=== PATIENT | female | born 1945 | race Caucasian/White ===

== ENCOUNTER 2017-03-11 07:43 | Day surgery (SDC) | payer MEDICARE ==
[2017-03-09 15:49] VITALS: BMI 34.7
[~2017-03-11 07:43] MED LIST: LACTATED RINGERS 1,000 ML IV SCH
[2017-03-11 08:18] VITALS: PULSE 60; RESP 18; TEMP 97.6
[2017-03-11] MEDS ORDERED: PROPOFOL 10 MG/ML 20 ML VIAL IV ONE (08:29)
[2017-03-11 08:42] LABS: Glucose,Whole Blood 105 mg/dL (75-99)
--- NOTE | 2017-03-11 08:47 | P.PCN ---
Date of Procedure: 03/11/17 Procedure(s) Performed: BRIEF HISTORY: Patient is a 71-year-old pleasant female, scheduled for an elective colonoscopy as a part of screening for colorectal neoplasia. She has a family history of colon cancer diagnosed in her brother and sister in detail early 60s. PROCEDURE PERFORMED: Colonoscopy with biopsy. PREOPERATIVE DIAGNOSIS: Screening for colon cancer/family history of colon cancer. IV sedation per Anesthesia. PROCEDURE: After informed consent was obtained, the patient, was brought into the endoscopy unit. IV sedation was administered by Anesthesia under continuous monitoring. Digital rectal examination was normal. Initially the Olympus CF- 160 flexible video colonoscope was then inserted in the rectum, gradually advanced into the cecum without any difficulty. Careful examination was performed as the scope was gradually being withdrawn. Ileocecal valve and the appendiceal orifice were visualized and appeared normal. Prep was excellent. Mucosa of the cecum, ascending colon, transverse colon, appeared normal. In the descending colon there was a 5 mm polyp that was removed by biopsy. Rest of the descending colon, sigmoid colon, and rectum appeared normal. Retroflexion was performed in the rectum and no lesions were seen. The patient tolerated the procedure well. IMPRESSION: 5 mm descending colon polyp status post removal by biopsy. Rest of the colon appeared normal.. RECOMMENDATIONS: Findings of this examination were discussed with the patient as well as her family. She was advised to follow with the biopsy results and have a repeat surveillance colonoscopy in 5 years because of the strong family history of colon cancer.
[2017-03-11 09:12] VITALS: BP 127/60
== END 2017-03-11 09:44 | disposition home or self-care (01) ==
LOC: ORWHC2ENDO 07:43
PROVIDERS: ATTEND Internal Medicine Gastroenterology
DX: Z12.11 Encounter for screening for malignant neoplasm of colon (principal); D12.4 Benign neoplasm of descending colon; E78.5 Hyperlipidemia, unspecified; E11.9 Type 2 diabetes mellitus without complications; E07.9 Disorder of thyroid, unspecified; Z80.0 Family history of malignant neoplasm of digestive organs; Z88.1 Allergy status to other antibiotic agents; Z79.01 Long term (current) use of anticoagulants; Z79.4 Long term (current) use of insulin; Z79.899 Other long term (current) drug therapy; Z86.79 Personal history of other diseases of the circulatory system
CPT/HCPCS: 45380; 88305; J2704

== ENCOUNTER 2017-05-08 11:36 | Emergency (ER) | payer MEDICARE ==
[2017-05-08] MEDS ORDERED: SODIUM CHLORIDE 0.9% 500 ML IV STA ×2 (11:49→13:21)
--- NOTE | 2017-05-08 12:00 | ED ---
General Adult HPI - General Chief complaint: Dizziness Stated complaint: kidney stones Time Seen by Provider: 05/08/17 11:41 Source: EMS, RN notes reviewed Mode of arrival: EMS Limitations: no limitations - History of Present Illness Initial comments: 71-year-old female presents to the emergency department with a chief complaint of dizziness. Patient has been having some left-sided kidney pain and dysuria and frequency. She went to urgent care and it appear that she had a UTI they gave her a shot of Rocephin and after she immediately became dizzy and feeling off. She states that she doesn't believe she ever had a shot like that in the past. She states that she is starting to feel better at this time. They deny any rashes she denies any difficulty in breathing. She denies any high fevers at home. There's been no nausea or vomiting. She was sent here due to her reaction to the injection so they thought that she should be further evaluated. Patient denies any recent fever, chills, shortness of breath, chest pain, abdominal pain, nausea vomiting, numbness or tingling, constipation or diarrhea , headaches or visual changes, or any other current symptoms. - Related Data Home Medications Medication Instructions Recorded Confirmed Atenolol 100 mg PO DAILY 03/09/17 05/08/17 Dabigatran [Pradaxa] 150 mg PO BID 03/09/17 05/08/17 FLUoxetine HCL 40 mg PO DAILY 03/09/17 05/08/17 Insulin Aspart [NovoLOG] See Protocol SQ AC-TID 03/09/17 05/08/17 Insulin Glargine [Lantus] 30 unit SQ HS 03/09/17 05/08/17 Levothyroxine Sodium [Synthroid] 75 mcg PO DAILY 03/09/17 05/08/17 Pravastatin Sodium [Pravachol] 40 mg PO DAILY 03/09/17 05/08/17 Ramipril 2.5 mg PO DAILY 03/09/17 05/08/17 Ibandronate Sodium [Boniva] 150 mg PO Q30D 05/08/17 05/08/17 Previous Rx's Medication Instructions Recorded ALPRAZolam [Xanax] 0.5 mg PO BID PRN #20 tablet 11/08/14 Hydrocodone/Acetaminophen [[place] 1 each PO Q6HR PRN #20 tab 05/08/17 5-325] Ondansetron Odt [Zofran ODT] 4 mg PO Q8HR PRN #20 tab 05/08/17 Tamsulosin [Flomax] 0.4 mg PO DAILY #5 cap 05/08/17 Allergies Allergy/AdvReac Type Severity Reaction Status Date / Time ofloxacin [From Floxin] Allergy Unknown Verified 05/08/17 12:49 Review of Systems ROS Statement: Those systems with pertinent positive or pertinent negative responses have been documented in the HPI. ROS Other: All systems not noted in ROS Statement are negative. Past Medical History Past Medical History: Atrial Fibrillation, Diabetes Mellitus, Hyperlipidemia, Hypertension History of Any Multi-Drug Resistant Organisms: None Reported Past Surgical History: Appendectomy, Cardiac Ablation, Cholecystectomy, Hysterectomy, Joint Replacement, Orthopedic Surgery, Pacemaker Additional Past Surgical History / Comment(s): lt knee replacement Past Anesthesia/Blood Transfusion Reactions: Family History of Problems w/ Anesthesia, Motion Sickness Additional Past Anesthesia/Blood Transfusion Reaction / Comment(s): pt states siblings are "allergic" to anesthesia experience hives and breathing difficulties Type of Cardiac Device: Permanent Pacemaker Device Placement Date:: 2013 Past Psychological History: Depression Smoking Status: Never smoker - Past Family History Brother(s) Family Medical History: Cancer Additional Family Medical History / Comment(s): colorectal,multiple myeloma Sister(s) Family Medical History: Cancer, CVA/TIA Additional Family Medical History / Comment(s): breast,colorectal cancer Son(s) Family Medical History: Cancer Additional Family Medical History / Comment(s): leukemia General Exam - General Exam Comments Initial Comments: General: The patient is awake and alert, in no distress, and does not appear acutely ill. Eye: Pupils are equal, round and reactive to light, extra-ocular movements are intact; there is normal conjunctiva bilaterally. No signs of icterus. Ears, nose, mouth and throat: There are moist mucous membranes. Neck: The neck is supple, there is no tenderness. Cardiovascular: There is a regular rate and rhythm. No murmur, rub or gallop is appreciated. Respiratory: Lungs are clear to auscultation, respirations are non-labored, breath sounds are equal. No wheezes, stridor, rales, or rhonchi. Gastrointestinal: Soft, non-distended, non-tender abdomen without masses or organomegaly noted. There is no rebound or guarding present. No CVA tenderness. Bowel sounds are unremarkable. Back: There is no tenderness to palpation in the midline. There is no obvious deformity. No rashes noted. Musculoskeletal: Normal ROM, no tenderness, There is no pedal edema. There is no calf tenderness or swelling. Sensation intact. Pulses equal bilaterally 2+. Neurological: CN II-XII intact, There are no obvious motor or sensory deficits. Coordination appears grossly intact. Speech is normal. Skin: Skin is warm and dry and no rashes or lesions are noted. Psychiatric: Cooperative, appropriate mood & affect, normal judgment. Limitations: no limitations Course Vital Signs 05/08/17 05/08/17 11:50 14:46 Temperature 97.4 F L Pulse Rate 81 80 Respiratory 18 16 Rate Blood Pressure 167/71 109/58 O2 Sat by Pulse 100 95 Oximetry Medical Decision Making - Medical Decision Making 71-year-old female presents to the emergency department with a chief complaint of reaction to injection. At this time patient lab work and CT has been reviewed. At this time there does appear to be some dehydration with an elevated lactic acid. Patient was hydrated and pain went from a 7 to a 4 with tylenol. SHe states she has had improvement. on further taking she states she did have a pink urine and now it seems to have changed to clear on cathing. URine shows no sign of infection culture was sent. We discussed high suspicion for possible ureteral stone. We did discuss care and home and follow up. We discussed return parameters and all the patients questions. THey are in agreement with this plan and comfortable taking the patient home. All questions have been answered. Patient will be discharged. - Lab Data Result diagrams: 05/08/17 12:12 05/08/17 12:12 Lab Results 05/08/17 05/08/17 05/08/17 Range/Units 12:12 12:12 12:12 WBC 8.7 (3.8-10.6) k/uL RBC 4.31 (3.80-5.40) m/uL Hgb 13.5 (11.4-16.0) gm/dL Hct 42.4 (34.0-46.0) % MCV 98.4 (80.0-100.0) fL MCH 31.4 (25.0-35.0) pg MCHC 31.9 (31.0-37.0) g/dL RDW 14.2 (11.5-15.5) % Plt Count 164 (150-450) k/uL Neutrophils % 77 % Lymphocytes % 17 % Monocytes % 4 % Eosinophils % 1 % Basophils % 1 % Neutrophils # 6.7 (1.3-7.7) k/uL Lymphocytes # 1.4 (1.0-4.8) k/uL Monocytes # 0.4 (0-1.0) k/uL Eosinophils # 0.1 (0-0.7) k/uL Basophils # 0.1 (0-0.2) k/uL PT (9.0-12.0) sec INR (<1.2) APTT (22.0-30.0) sec Sodium 137 (137-145) mmol/L Potassium 4.6 (3.5-5.1) mmol/L Chloride 101 (98-107) mmol/L Carbon Dioxide 23 (22-30) mmol/L Anion Gap 13 mmol/L BUN 16 (7-17) mg/dL Creatinine 0.76 (0.52-1.04) mg/dL Est GFR (MDRD) Af Amer >60 (>60 ml/min/1.73 sqM) Est GFR (MDRD) Non-Af >60 (>60 ml/min/1.73 sqM) Glucose 236 H (74-99) mg/dL Plasma Lactic Acid Cristian (0.7-2.0) mmol/L Calcium 10.3 H (8.4-10.2) mg/dL Total Bilirubin 1.5 H (0.2-1.3) mg/dL AST 26 (14-36) U/L ALT 33 (9-52) U/L Alkaline Phosphatase 93 (38-126) U/L Total Protein 7.2 (6.3-8.2) g/dL Albumin 4.1 (3.5-5.0) g/dL Urine Color Urine Appearance (Clear) Urine pH (5.0-8.0) Ur Specific [place] (1.001-1.035) Urine Protein (Negative) Urine Glucose (UA) (Negative) Urine Ketones (Negative) Urine Blood (Negative) Urine Nitrite (Negative) Urine Bilirubin (Negative) Urine Urobilinogen (<2.0) mg/dL Ur Leukocyte Esterase (Negative) Influenza Type A RNA Not Detected (Not Detectd) Influenza Type B (PCR) Not Detected (Not Detectd) 05/08/17 05/08/17 05/08/17 Range/Units 12:12 12:12 13:25 WBC (3.8-10.6) k/uL RBC (3.80-5.40) m/uL Hgb (11.4-16.0) gm/dL Hct (34.0-46.0) % MCV (80.0-100.0) fL MCH (25.0-35.0) pg MCHC (31.0-37.0) g/dL RDW (11.5-15.5) % Plt Count (150-450) k/uL Neutrophils % % Lymphocytes % % Monocytes % % Eosinophils % % Basophils % % Neutrophils # (1.3-7.7) k/uL Lymphocytes # (1.0-4.8) k/uL Monocytes # (0-1.0) k/uL Eosinophils # (0-0.7) k/uL Basophils # (0-0.2) k/uL PT 11.1 (9.0-12.0) sec INR 1.2 H (<1.2) APTT 19.0 L (22.0-30.0) sec Sodium (137-145) mmol/L Potassium (3.5-5.1) mmol/L Chloride (98-107) mmol/L Carbon Dioxide (22-30) mmol/L Anion Gap mmol/L BUN (7-17) mg/dL Creatinine (0.52-1.04) mg/dL Est GFR (MDRD) Af Amer (>60 ml/min/1.73 sqM) Est GFR (MDRD) Non-Af (>60 ml/min/1.73 sqM) Glucose (74-99) mg/dL Plasma Lactic Acid Cristian 2.5 H* (0.7-2.0) mmol/L Calcium (8.4-10.2) mg/dL Total Bilirubin (0.2-1.3) mg/dL AST (14-36) U/L ALT (9-52) U/L Alkaline Phosphatase (38-126) U/L Total Protein (6.3-8.2) g/dL Albumin (3.5-5.0) g/dL Urine Color Yellow Urine Appearance Clear (Clear) Urine pH 5.5 (5.0-8.0) Ur Specific [place] 1.023 (1.001-1.035) Urine Protein Trace H (Negative) Urine Glucose (UA) 2+ H (Negative) Urine Ketones 2+ H (Negative) Urine Blood Negative (Negative) Urine Nitrite Negative (Negative) Urine Bilirubin Negative (Negative) Urine Urobilinogen 3.0 (<2.0) mg/dL Ur Leukocyte Esterase Negative (Negative) Influenza Type A RNA (Not Detectd) Influenza Type B (PCR) (Not Detectd) Disposition Clinical Impression: Left flank pain, Dysuria, Dehydration, Adverse effects of medication Disposition: HOME SELF-CARE Condition: Stable Instructions: Abdominal Pain (ED), Dehydration (ED), Kidney Stones (ED) Additional Instructions: PLease use medications as prescribed. FOllow up with your doctor in 1-2 days. PLease return for worsening or changing symptoms. Prescriptions: Hydrocodone/Acetaminophen [[place] 5-325] 1 each PO Q6HR PRN #20 tab PRN Reason: Pain Ondansetron Odt [Zofran ODT] 4 mg PO Q8HR PRN #20 tab PRN Reason: Nausea Tamsulosin [Flomax] 0.4 mg PO DAILY #5 cap Referrals: Quang Hebert MD [Primary Care Provider] - 1-2 days Time of Disposition: 15:46
[2017-05-08 12:34] LABS: Basophils # (A) 0.1 k/uL (0-0.2); Basophils % (A) 1 %; Eosinophils # (A) 0.1 k/uL (0-0.7); Eosinophils % (A) 1 %; HCT 42.4 % (34.0-46.0); HGB 13.5 gm/dL (11.4-16.0); Lymphocytes # (A) 1.4 k/uL (1.0-4.8); Lymphocytes % (A) 17 %; MCH 31.4 pg (25.0-35.0); MCHC 31.9 g/dL (31.0-37.0); MCV 98.4 fL (80.0-100.0); Mean Platelet Volume 8.2; Monocytes # (A) 0.4 k/uL (0-1.0); Monocytes % (A) 4 %; Neutrophils # (A) 6.7 k/uL (1.3-7.7); Neutrophils % (A) 77 %; Platelet Count 164 k/uL (150-450); RBC 4.31 m/uL (3.80-5.40); RDW 14.2 % (11.5-15.5); WBC 8.7 k/uL (3.8-10.6)
--- NOTE | 2017-05-08 12:40 | XR ---
EXAMINATION TYPE: XR chest 2V DATE OF EXAM: 05/08/2017 COMPARISON: NONE HISTORY: Cough per order. Syncope. TECHNIQUE: Frontal and lateral views of the chest are obtained. FINDINGS: There is no focal air space opacity, pleural effusion, or pneumothorax seen. The cardiac silhouette size is mildly enlarged with right-sided dual lead pacemaker. There is atherosclerotic deysi nge in aortic knob. The osseous structures are intact. Cholecystectomy clips are noted on lateral vi ew. IMPRESSION: Mild cardiomegaly without acute pulmonary process.
[2017-05-08 12:44] LABS: ALT 33 U/L (9-52); AST 26 U/L (14-36); Albumin 4.1 g/dL (3.5-5.0); Alkaline Phosphatase 93 U/L (38-126); Anion Gap 13 mmol/L; Blood Urea Nitrogen 16 mg/dL (7-17); Calcium 10.3 mg/dL (8.4-10.2); Carbon Dioxide 23 mmol/L (22-30); Chloride 101 mmol/L (98-107); Glucose 236 mg/dL (74-99); Potassium 4.6 mmol/L (3.5-5.1); Sodium 137 mmol/L (137-145); Total Bilirubin 1.5 mg/dL (0.2-1.3); Total Protein 7.2 g/dL (6.3-8.2)
[2017-05-08 12:50] LABS: INR 1.2 (<1.2); Prothrombin Time 11.1 sec (9.0-12.0)
[2017-05-08] MEDS ORDERED: ACETAMINOPHEN TAB 500 MG TAB PO STA (13:19)
[2017-05-08 13:57] LABS: Appearance,Urine Clear (Clear); Bilirubin,Urine Negative (Negative); Blood,Urine Negative (Negative); Color,Urine Yellow; Glucose,Urine (UA) 2+ (Negative); Leukocyte Esterase,Urine Negative (Negative); Nitrite,Urine Negative (Negative); PH, Urine 5.5 (5.0-8.0); Protein,Urine Trace (Negative); Specific Gravity,Urine 1.023 (1.001-1.035)
[2017-05-08 14:42] LABS: Ketones,Urine 2+ (Negative)
[2017-05-08 14:46] VITALS: PULSE 80
--- NOTE | 2017-05-08 14:51 | CT ---
EXAMINATION TYPE: CT abdomen pelvis wo con DATE OF EXAM: 05/08/2017 HISTORY: Lt flank pain CT DLP: 1207.4 mGycm. Automated Exposure Control for Dose Reduction was Utilized. TECHNIQUE: CT scan of the abdomen and pelvis is performed without oral or IV contrast. COMPARISON: NONE FINDINGS: Within the limitations of a non-contrast study, the following observations are made. LUNG BASES: Heart size is upper limits of normal. There is partial visualization of right-sided ventr icular pacemaker lead. LIVER/GB: Cholecystectomy clips are identified. PANCREAS: No significant abnormality is seen. SPLEEN: No significant abnormality is seen. ADRENALS: No significant abnormality is seen. KIDNEYS: No renal stones or hydronephrosis is present bilaterally. Small focus of nondependent air in poorly distended bladder is noted axial image 137. No suspicious wall thickening or intraluminal sto ne is present. Left-sided pelvic phlebolith is seen. Suspect additional phleboliths along course of d raining left ovarian vein. BOWEL: There is no suspicious small or large bowel dilatation. Evaluation bowel suboptimal study due to lack of enteric contrast. There are some diverticula in the sigmoid colon. There is no CT evidence for acute diverticulitis. Terminal ileum is felt within normal limits. GENITAL ORGANS: Uterus is surgically absent or markedly atrophic in appearance. LYMPH NODES: No greater than 1cm abdominal or pelvic lymph nodes are appreciated. OSSEOUS STRUCTURES: Osseous structures are demineralized. Spine is straightened on sagittal images. T here is moderate to advanced disc space narrowing L5-S1 level with posterior spur disc complex presen t on sagittal image 67 OTHER: No significant additional abnormality is seen. IMPRESSION: No significant finding clearly seen to account for patient's symptoms. Small nondependent focus of air in bladder noted, correlate for recent catheterization otherwise other etiologies such as fistula need to be excluded.
[2017-05-08 16:22] VITALS: BP 115/80; RESP 20; TEMP 98
== END 2017-05-08 16:18 | disposition home or self-care (01) ==
LOC: EC 11:36
DX: E86.0 Dehydration (principal); R30.0 Dysuria; R10.9 Unspecified abdominal pain; T36.1X5A Adverse effect of cephalosporins and other beta-lactam antibiotics, initial encounter; E11.9 Type 2 diabetes mellitus without complications; I48.91 Unspecified atrial fibrillation; E78.5 Hyperlipidemia, unspecified; I10 Essential (primary) hypertension; Z88.1 Allergy status to other antibiotic agents; F32.9 Major depressive disorder, single episode, unspecified; Z79.4 Long term (current) use of insulin; Z79.01 Long term (current) use of anticoagulants; Z79.899 Other long term (current) drug therapy
CPT/HCPCS: 36415; 71046; 74176; 80053; 81003; 83605; 85025; 85610; 85730; 87040; 87086; 87502; 96360; 99285

== ENCOUNTER 2017-05-12 12:57 | Emergency (ER) | payer MEDICARE ==
[2017-05-12 16:43] VITALS: RESP 16
[2017-05-12] MEDS ORDERED: SODIUM CHLORIDE 0.9% 1,000 ML IV ONE (17:04)
[2017-05-12] MEDS ORDERED: ONDANSETRON 4 MG/2 ML VIAL IVP STA (17:04)
[2017-05-12] MEDS ORDERED: MORPHINE SULFATE 5 MG/ML SYRINGE IVP ONE (17:04)
[2017-05-12 17:14] LABS: Basophils % (A) 1 %; Eosinophils # (A) 0.1 k/uL (0-0.7); Eosinophils % (A) 1 %; HCT 38.2 % (34.0-46.0); HGB 12.7 gm/dL (11.4-16.0); Lymphocytes # (A) 1.9 k/uL (1.0-4.8); Lymphocytes % (A) 37 %; MCH 31.4 pg (25.0-35.0); MCHC 33.2 g/dL (31.0-37.0); MCV 94.6 fL (80.0-100.0); Mean Platelet Volume 7.7; Monocytes # (A) 0.4 k/uL (0-1.0); Monocytes % (A) 7 %; Neutrophils # (A) 2.8 k/uL (1.3-7.7); Neutrophils % (A) 53 %; Platelet Count 214 k/uL (150-450); RBC 4.04 m/uL (3.80-5.40); RDW 13.2 % (11.5-15.5); WBC 5.3 k/uL (3.8-10.6)
[2017-05-12] MEDS ORDERED: SODIUM CHLORIDE 0.9% 1,000 ML IV SCH (17:15)
[2017-05-12 17:19] LABS: Appearance,Urine Clear (Clear); Bilirubin,Urine Negative (Negative); Blood,Urine Negative (Negative); Color,Urine Yellow; Glucose,Urine (UA) Negative (Negative); Hyaline Casts,Urine 3 /lpf (0-2); Ketones,Urine Negative (Negative); Leukocyte Esterase,Urine Trace (Negative); Mucus,Urine Occasional /hpf; Nitrite,Urine Negative (Negative); PH, Urine 6.5 (5.0-8.0); Protein,Urine Trace (Negative); RBC,Urine 1 /hpf (0-5); Specific Gravity,Urine 1.017 (1.001-1.035); Squamous Epithelial Cell,Urine 2 /hpf (0-4); WBC,Urine 3 /hpf (0-5)
[2017-05-12 17:21] LABS: ALT 41 U/L (9-52); AST 30 U/L (14-36); Albumin 3.9 g/dL (3.5-5.0); Alkaline Phosphatase 84 U/L (38-126); Amylase <30 U/L (30-110); Anion Gap 9 mmol/L; Blood Urea Nitrogen 15 mg/dL (7-17); Calcium 10.5 mg/dL (8.4-10.2); Carbon Dioxide 29 mmol/L (22-30); Chloride 101 mmol/L (98-107); Glucose 185 mg/dL (74-99); Lipase 54 U/L (23-300); Potassium 4.2 mmol/L (3.5-5.1); Sodium 139 mmol/L (137-145); Total Bilirubin 0.5 mg/dL (0.2-1.3); Total Protein 6.9 g/dL (6.3-8.2)
--- NOTE | 2017-05-12 17:58 | XR ---
EXAMINATION TYPE: XR KUB-2 views DATE OF EXAM: 05/12/2017 COMPARISON: NONE HISTORY: Bilateral flank pain, history left kidney stone recently TECHNIQUE: 2 upright views were obtained. FINDINGS: Radiopaque pacemaker noted. Visualized lung bases and pleural spaces are negative. No pneumoperitoneum or pneumatosis. No bowel obstruction. No definite calcifications over the shadows or the expected course of the ureters or the bladder. IMPRESSION: Negative examination.
--- NOTE | 2017-05-12 18:08 | ED ---
Female Urogenital HPI - General Chief complaint: Urogenital Stated complaint: back pain/poss kidney stones Time Seen by Provider: 05/12/17 16:35 Source: patient, RN notes reviewed, old records reviewed Mode of arrival: wheelchair Limitations: no limitations - History of Present Illness Initial comments: 71-year-old female since the ED today she complaint of back pain, and lower abdominal pain. She works she was diagnosed with kidney stones. She states that she was discharged with [place], and Flomax and reports that she's been taking his medicines.she reports that this morning she had some episodes of heart fluttering. She reports that she has no fever or chills. Denies any nausea or vomiting. She denies any chest pain at this time. She reports that her heart feels fine. She reports she does have a pacemaker. She is concerned that she has not had her pacemaker checked. Patient denies any recent fever, chills, shortness of breath, chest pain, abdominal pain, nausea vomiting, numbness or tingling, dysuria or hematuria, constipation or diarrhea, headaches or visual changes, or any other current symptoms - Related Data Home Medications Medication Instructions Recorded Confirmed Atenolol 100 mg PO DAILY 03/09/17 05/12/17 Dabigatran [Pradaxa] 150 mg PO BID 03/09/17 05/12/17 FLUoxetine HCL 40 mg PO DAILY 03/09/17 05/12/17 Insulin Aspart [NovoLOG] See Protocol SQ AC-TID 03/09/17 05/12/17 Insulin Glargine [Lantus] 30 unit SQ HS 03/09/17 05/12/17 Levothyroxine Sodium [Synthroid] 75 mcg PO DAILY 03/09/17 05/12/17 Pravastatin Sodium [Pravachol] 40 mg PO DAILY 03/09/17 05/12/17 Ramipril 2.5 mg PO DAILY 03/09/17 05/12/17 Ibandronate Sodium [Boniva] 150 mg PO Q30D 05/08/17 05/12/17 Hydrocodone/Acetaminophen [[place] 1 tab PO Q6HR PRN 05/12/17 05/12/17 5-325] Previous Rx's Medication Instructions Recorded ALPRAZolam [Xanax] 0.5 mg PO BID PRN #20 tablet 11/08/14 Ondansetron Odt [Zofran ODT] 4 mg PO Q8HR PRN #20 tab 05/08/17 Tamsulosin [Flomax] 0.4 mg PO DAILY #5 cap 05/08/17 Allergies Allergy/AdvReac Type Severity Reaction Status Date / Time ofloxacin [From Floxin] Allergy Unknown Verified 05/12/17 17:32 Review of Systems ROS Statement: Those systems with pertinent positive or pertinent negative responses have been documented in the HPI. ROS Other: All systems not noted in ROS Statement are negative. Past Medical History Past Medical History: Atrial Fibrillation, Diabetes Mellitus, Hyperlipidemia, Hypertension History of Any Multi-Drug Resistant Organisms: None Reported Past Surgical History: Appendectomy, Cardiac Ablation, Cholecystectomy, Hysterectomy, Joint Replacement, Orthopedic Surgery, Pacemaker Additional Past Surgical History / Comment(s): lt knee replacement Past Anesthesia/Blood Transfusion Reactions: Family History of Problems w/ Anesthesia, Motion Sickness Additional Past Anesthesia/Blood Transfusion Reaction / Comment(s): pt states siblings are "allergic" to anesthesia experience hives and breathing difficulties Type of Cardiac Device: Permanent Pacemaker Device Placement Date:: 2013 Past Psychological History: Depression Smoking Status: Never smoker Past Alcohol Use History: Occasional Past Drug Use History: None Reported - Past Family History Brother(s) Family Medical History: Cancer Additional Family Medical History / Comment(s): colorectal,multiple myeloma Sister(s) Family Medical History: Cancer, CVA/TIA Additional Family Medical History / Comment(s): breast,colorectal cancer Son(s) Family Medical History: Cancer Additional Family Medical History / Comment(s): leukemia General Exam - General Exam Comments Initial Comments: 71-year-old female. No acute distress. Limitations: no limitations General appearance: alert, in no apparent distress Head exam: Present: atraumatic, normocephalic, normal inspection Eye exam: Present: normal appearance, PERRL, EOMI. Absent: scleral icterus, conjunctival injection, periorbital swelling ENT exam: Present: normal exam, mucous membranes moist Neck exam: Present: normal inspection. Absent: tenderness, meningismus, lymphadenopathy Respiratory exam: Present: normal lung sounds bilaterally. Absent: respiratory distress, wheezes, rales, rhonchi, stridor Cardiovascular Exam: Present: regular rate, normal rhythm, normal heart sounds. Absent: systolic murmur, diastolic murmur, rubs, gallop, clicks GI/Abdominal exam: Present: soft, normal bowel sounds. Absent: distended, tenderness, guarding, rebound, rigid Extremities exam: Present: normal inspection, full ROM, normal capillary refill. Absent: tenderness, pedal edema, joint swelling, calf tenderness Back exam: Present: normal inspection, paraspinal tenderness (lumbar and right paraspinal and CVA tenderness) Neurological exam: Present: alert, oriented X3, CN II-XII intact Psychiatric exam: Present: normal affect, normal mood Skin exam: Present: warm, dry, intact, normal color. Absent: rash Course Vital Signs 05/12/17 05/12/17 13:21 16:42 Temperature 98.6 F Pulse Rate 84 89 Respiratory 18 16 Rate Blood Pressure 105/58 151/72 O2 Sat by Pulse 98 98 Oximetry Medical Decision Making - Medical Decision Making 71-year-old female presents today with increased back pain today. She is diagnosed kidney stones last week. She states that she has had no fever or chills or other symptoms. patient's labwork was reviewed negative for acute process. Urinalysis is normal. patient's KUB is negative for any acute process. I reviewed patient's previous CT, there is no evidence any acute abnormality's within the right renal area as well as left renal area. Patient arrived here she reports that her back pain is diminished. Just states she had a couple episodes of heart fluttering. She states that only lasted for a few minutes earlier today, and she feels fine at this time. Denies any chest pain shortness of breath or heart palpitations. Patient's troponin is negative. Her EKG was reviewed and within normal limits. patient will be discharged at this time with follow-up with her primary care provider, I do believe the back pain is most likely muscular skeletal or could've been gas pains. Again she states she has no significant pain at this time and reports she would like to go home. Patient agrees to discharge.. - Lab Data Result diagrams: 05/12/17 16:48 05/12/17 16:48 Lab Results 05/12/17 05/12/17 05/12/17 Range/Units 16:48 16:48 16:48 WBC 5.3 (3.8-10.6) k/uL RBC 4.04 (3.80-5.40) m/uL Hgb 12.7 (11.4-16.0) gm/dL Hct 38.2 (34.0-46.0) % MCV 94.6 (80.0-100.0) fL MCH 31.4 (25.0-35.0) pg MCHC 33.2 (31.0-37.0) g/dL RDW 13.2 (11.5-15.5) % Plt Count 214 (150-450) k/uL Neutrophils % 53 % Lymphocytes % 37 % Monocytes % 7 % Eosinophils % 1 % Basophils % 1 % Neutrophils # 2.8 (1.3-7.7) k/uL Lymphocytes # 1.9 (1.0-4.8) k/uL Monocytes # 0.4 (0-1.0) k/uL Eosinophils # 0.1 (0-0.7) k/uL Basophils # 0.0 (0-0.2) k/uL Sodium 139 (137-145) mmol/L Potassium 4.2 (3.5-5.1) mmol/L Chloride 101 (98-107) mmol/L Carbon Dioxide 29 (22-30) mmol/L Anion Gap 9 mmol/L BUN 15 (7-17) mg/dL Creatinine 0.70 (0.52-1.04) mg/dL Est GFR (MDRD) Af Amer >60 (>60 ml/min/1.73 sqM) Est GFR (MDRD) Non-Af >60 (>60 ml/min/1.73 sqM) Glucose 185 H (74-99) mg/dL Calcium 10.5 H (8.4-10.2) mg/dL Total Bilirubin 0.5 (0.2-1.3) mg/dL AST 30 (14-36) U/L ALT 41 (9-52) U/L Alkaline Phosphatase 84 (38-126) U/L Troponin I (0.000-0.034) ng/mL Total Protein 6.9 (6.3-8.2) g/dL Albumin 3.9 (3.5-5.0) g/dL Amylase <30 L (30-110) U/L Lipase 54 (23-300) U/L Urine Color Yellow Urine Appearance Clear (Clear) Urine pH 6.5 (5.0-8.0) Ur Specific [place] 1.017 (1.001-1.035) Urine Protein Trace H (Negative) Urine Glucose (UA) Negative (Negative) Urine Ketones Negative (Negative) Urine Blood Negative (Negative) Urine Nitrite Negative (Negative) Urine Bilirubin Negative (Negative) Urine Urobilinogen 4.0 (<2.0) mg/dL Ur Leukocyte Esterase Trace H (Negative) Urine RBC 1 (0-5) /hpf Urine WBC 3 (0-5) /hpf Ur Squamous Epith Cells 2 (0-4) /hpf Hyaline Casts 3 H (0-2) /lpf Urine Mucus Occasional H (None) /hpf 05/12/17 Range/Units 16:48 WBC (3.8-10.6) k/uL RBC (3.80-5.40) m/uL Hgb (11.4-16.0) gm/dL Hct (34.0-46.0) % MCV (80.0-100.0) fL MCH (25.0-35.0) pg MCHC (31.0-37.0) g/dL RDW (11.5-15.5) % Plt Count (150-450) k/uL Neutrophils % % Lymphocytes % % Monocytes % % Eosinophils % % Basophils % % Neutrophils # (1.3-7.7) k/uL Lymphocytes # (1.0-4.8) k/uL Monocytes # (0-1.0) k/uL Eosinophils # (0-0.7) k/uL Basophils # (0-0.2) k/uL Sodium (137-145) mmol/L Potassium (3.5-5.1) mmol/L Chloride (98-107) mmol/L Carbon Dioxide (22-30) mmol/L Anion Gap mmol/L BUN (7-17) mg/dL Creatinine (0.52-1.04) mg/dL Est GFR (MDRD) Af Amer (>60 ml/min/1.73 sqM) Est GFR (MDRD) Non-Af (>60 ml/min/1.73 sqM) Glucose (74-99) mg/dL Calcium (8.4-10.2) mg/dL Total Bilirubin (0.2-1.3) mg/dL AST (14-36) U/L ALT (9-52) U/L Alkaline Phosphatase (38-126) U/L Troponin I <0.012 (0.000-0.034) ng/mL Total Protein (6.3-8.2) g/dL Albumin (3.5-5.0) g/dL Amylase (30-110) U/L Lipase (23-300) U/L Urine Color Urine Appearance (Clear) Urine pH (5.0-8.0) Ur Specific [place] (1.001-1.035) Urine Protein (Negative) Urine Glucose (UA) (Negative) Urine Ketones (Negative) Urine Blood (Negative) Urine Nitrite (Negative) Urine Bilirubin (Negative) Urine Urobilinogen (<2.0) mg/dL Ur Leukocyte Esterase (Negative) Urine RBC (0-5) /hpf Urine WBC (0-5) /hpf Ur Squamous Epith Cells (0-4) /hpf Hyaline Casts (0-2) /lpf Urine Mucus (None) /hpf 05/12/17 18:50Patient's EKG shows sinus rhythm first degree AV block. Low voltage QRS. Visualize any [address] interval 228 ms. QRS ration 92 ms. QTC is 46/450 ms. - Radiology Data Radiology results: report reviewed Patient CT without contrast was performed last week. Patient had no significant findings at that time. She does have disc space during L5-S1 and disc complex present noted. AB is negative for any acute process. Disposition Clinical Impression: Back pain Disposition: HOME SELF-CARE Condition: Good Instructions: Acute Low Back Pain (ED) Additional Instructions: Patient has a follow-up with primary care provider. Continue to take your pain medications. Return to the emergency department if any alarming signs or symptoms occur. Referrals: Quang Hebert MD [Primary Care Provider] - 1-2 days Time of Disposition: 18:39
[2017-05-12 19:12] VITALS: BP 161/72; PULSE 72; TEMP 96.9
== END 2017-05-12 19:12 | disposition home or self-care (01) ==
LOC: EC 12:57
DX: M54.5 Low back pain (principal); R10.30 Lower abdominal pain, unspecified; E11.9 Type 2 diabetes mellitus without complications; I48.91 Unspecified atrial fibrillation; E78.5 Hyperlipidemia, unspecified; I10 Essential (primary) hypertension; F32.9 Major depressive disorder, single episode, unspecified; Z79.4 Long term (current) use of insulin; Z79.899 Other long term (current) drug therapy; Z88.1 Allergy status to other antibiotic agents; Z90.49 Acquired absence of other specified parts of digestive tract; Z90.710 Acquired absence of both cervix and uterus; Z98.890 Other specified postprocedural states
CPT/HCPCS: 36415; 80053; 82150; 83690; 84484; 85025; 81001; 74018; 99284; 96374; 96375; 96361; J2405; J2274; 93005

== ENCOUNTER 2017-05-27 08:03 | Emergency (ER) | payer MEDICARE ==
[2017-05-27] MEDS ORDERED: SODIUM CHLORIDE 0.9% 1,000 ML IV STA (08:32)
--- NOTE | 2017-05-27 08:37 | ED ---
General Adult HPI - General Chief complaint: Fever Stated complaint: HYPOGLYCEMIA Time Seen by Provider: 05/27/17 08:08 Source: patient, RN notes reviewed Mode of arrival: ambulatory Limitations: no limitations - History of Present Illness Initial comments: 72-year-old female presents to the emergency department with a chief complaint of fever. Patient states that she's had a fever for the past 2-3 days. She's had some congestion and a mild cough with sputum production. She states that she's been taking Tylenol she's not able to take Motrin due to the use of a blood better. She states that she did have kidney stones last week but that seems to have resolved. She's had no changes in urination abdominal pain she denies any nausea or vomiting with this. Patient's states that she just been kind of out of it. She is concerned about her sugar level because she 's not been eating as much as she normally does and she had does use insulin. They state that she has body aches. She states that she just feels off. She denies any other symptoms at this time. Patient denies any recent shortness of breath, chest pain, back pain, abdominal pain, nausea vomiting, numbness or tingling, dysuria or hematuria, constipation or diarrhea, headaches or visual changes, or any other current symptoms. - Related Data Home Medications Medication Instructions Recorded Confirmed Atenolol 100 mg PO DAILY 03/09/17 05/27/17 Dabigatran [Pradaxa] 150 mg PO BID 03/09/17 05/27/17 FLUoxetine HCL 40 mg PO DAILY 03/09/17 05/27/17 Insulin Aspart [NovoLOG] See Protocol SQ AC-TID 03/09/17 05/27/17 Insulin Glargine [Lantus] 30 unit SQ HS 03/09/17 05/27/17 Levothyroxine Sodium [Synthroid] 75 mcg PO DAILY 03/09/17 05/27/17 Pravastatin Sodium [Pravachol] 40 mg PO DAILY 03/09/17 05/27/17 Ramipril 2.5 mg PO DAILY 03/09/17 05/27/17 Ibandronate Sodium [Boniva] 150 mg PO Q30D 05/08/17 05/27/17 Hydrocodone/Acetaminophen [[place] 1 tab PO Q6HR PRN 05/12/17 05/27/17 5-325] Acetaminophen/Diphenhydramine 2 tab PO ONCE 05/27/17 05/27/17 [Tylenol PM 500-25mg] Previous Rx's Medication Instructions Recorded ALPRAZolam [Xanax] 0.5 mg PO BID PRN #20 tablet 11/08/14 Ondansetron Odt [Zofran ODT] 4 mg PO Q8HR PRN #20 tab 05/08/17 Tamsulosin [Flomax] 0.4 mg PO DAILY #5 cap 05/08/17 Oseltamivir [Tamiflu] 75 mg PO Q12HR #9 cap 05/27/17 Allergies Allergy/AdvReac Type Severity Reaction Status Date / Time ofloxacin [From Floxin] Allergy Unknown Verified 05/27/17 08:52 Review of Systems ROS Statement: Those systems with pertinent positive or pertinent negative responses have been documented in the HPI. ROS Other: All systems not noted in ROS Statement are negative. Past Medical History Past Medical History: Atrial Fibrillation, Diabetes Mellitus, Hyperlipidemia, Hypertension History of Any Multi-Drug Resistant Organisms: None Reported Past Surgical History: Appendectomy, Cardiac Ablation, Cholecystectomy, Hysterectomy, Joint Replacement, Orthopedic Surgery, Pacemaker Additional Past Surgical History / Comment(s): lt knee replacement Past Anesthesia/Blood Transfusion Reactions: Family History of Problems w/ Anesthesia, Motion Sickness Additional Past Anesthesia/Blood Transfusion Reaction / Comment(s): pt states siblings are "allergic" to anesthesia experience hives and breathing difficulties Type of Cardiac Device: Permanent Pacemaker Device Placement Date:: 2013 Past Psychological History: Depression Smoking Status: Never smoker Past Alcohol Use History: Occasional Past Drug Use History: None Reported - Past Family History Brother(s) Family Medical History: Cancer Additional Family Medical History / Comment(s): colorectal,multiple myeloma Sister(s) Family Medical History: Cancer, CVA/TIA Additional Family Medical History / Comment(s): breast,colorectal cancer Son(s) Family Medical History: Cancer Additional Family Medical History / Comment(s): leukemia General Exam - General Exam Comments Initial Comments: General: The patient is awake and alert, in no distress, and does not appear acutely ill. Eye: Pupils are equal, round and reactive to light, extra-ocular movements are intact; there is normal conjunctiva bilaterally. No signs of icterus. Ears, nose, mouth and throat: There are moist mucous membranes and no oral lesions. Neck: The neck is supple, there is no tenderness. Cardiovascular: There is a regular rate and rhythm. No murmur, rub or gallop is appreciated. Respiratory: Lungs are clear to auscultation, respirations are non-labored, breath sounds are equal. No wheezes, stridor, rales, or rhonchi. Gastrointestinal: Soft, non-distended, non-tender abdomen without masses or organomegaly noted. There is no rebound or guarding present. No CVA tenderness. Bowel sounds are unremarkable. Back: There is no tenderness to palpation in the midline. There is no obvious deformity. No rashes noted. Musculoskeletal: Normal ROM, no tenderness, There is no pedal edema. There is no calf tenderness or swelling. Sensation intact. Pulses equal bilaterally 2+. Neurological: CN II-XII intact, There are no obvious motor or sensory deficits. Coordination appears grossly intact. Speech is normal. Skin: Skin is warm and dry and no rashes or lesions are noted. Psychiatric: Cooperative, appropriate mood & affect, normal judgment. Limitations: no limitations Course Vital Signs 05/27/17 08:05 Temperature 101.6 F H Pulse Rate 98 Respiratory 20 Rate Blood Pressure 172/85 O2 Sat by Pulse 99 Oximetry Medical Decision Making - Medical Decision Making 72-year-old female presents to the emergency department with a chief complaint of fever. At this time patient is positive for influenza A. This time lab work is otherwise reviewed and does appear to be stable. At this time patient was offered admission to the hospital but family states she tried to go home. We will give Motrin and Tylenol here prior to discharge. We also gave the first dose of Tamiflu. We discussed the importance of using the Tamiflu. We did discuss what to watch for home and when to return to the emergency department. We did discuss senior living and the family and patient stated he understood. All questions have been answered. They will be discharged. - Lab Data Result diagrams: 05/27/17 08:55 05/27/17 08:55 Lab Results 05/27/17 05/27/17 05/27/17 Range/Units 08:55 08:55 08:55 WBC 3.9 (3.8-10.6) k/uL RBC 3.78 L (3.80-5.40) m/uL Hgb 12.1 (11.4-16.0) gm/dL Hct 36.4 (34.0-46.0) % MCV 96.3 (80.0-100.0) fL MCH 31.9 (25.0-35.0) pg MCHC 33.1 (31.0-37.0) g/dL RDW 13.5 (11.5-15.5) % Plt Count 148 L (150-450) k/uL Neutrophils % 73 % Lymphocytes % 19 % Monocytes % 5 % Eosinophils % 1 % Basophils % 0 % Neutrophils # 2.8 (1.3-7.7) k/uL Lymphocytes # 0.7 L (1.0-4.8) k/uL Monocytes # 0.2 (0-1.0) k/uL Eosinophils # 0.1 (0-0.7) k/uL Basophils # 0.0 (0-0.2) k/uL Sodium 136 L (137-145) mmol/L Potassium 4.3 (3.5-5.1) mmol/L Chloride 97 L (98-107) mmol/L Carbon Dioxide 28 (22-30) mmol/L Anion Gap 11 mmol/L BUN 12 (7-17) mg/dL Creatinine 0.75 (0.52-1.04) mg/dL Est GFR (MDRD) Af Amer >60 (>60 ml/min/1.73 sqM) Est GFR (MDRD) Non-Af >60 (>60 ml/min/1.73 sqM) Glucose 241 H (74-99) mg/dL Plasma Lactic Acid Cristian (0.7-2.0) mmol/L Calcium 9.7 (8.4-10.2) mg/dL Total Bilirubin 0.4 (0.2-1.3) mg/dL AST 27 (14-36) U/L ALT 27 (9-52) U/L Alkaline Phosphatase 68 (38-126) U/L Total Protein 6.8 (6.3-8.2) g/dL Albumin 3.9 (3.5-5.0) g/dL Urine Color Urine Appearance (Clear) Urine pH (5.0-8.0) Ur Specific [place] (1.001-1.035) Urine Protein (Negative) Urine Glucose (UA) (Negative) Urine Ketones (Negative) Urine Blood (Negative) Urine Nitrite (Negative) Urine Bilirubin (Negative) Urine Urobilinogen (<2.0) mg/dL Ur Leukocyte Esterase (Negative) Influenza Type A RNA Detected H (Not Detectd) Influenza Type B (PCR) Not Detected (Not Detectd) 05/27/17 05/27/17 Range/Units 08:55 08:55 WBC (3.8-10.6) k/uL RBC (3.80-5.40) m/uL Hgb (11.4-16.0) gm/dL Hct (34.0-46.0) % MCV (80.0-100.0) fL MCH (25.0-35.0) pg MCHC (31.0-37.0) g/dL RDW (11.5-15.5) % Plt Count (150-450) k/uL Neutrophils % % Lymphocytes % % Monocytes % % Eosinophils % % Basophils % % Neutrophils # (1.3-7.7) k/uL Lymphocytes # (1.0-4.8) k/uL Monocytes # (0-1.0) k/uL Eosinophils # (0-0.7) k/uL Basophils # (0-0.2) k/uL Sodium (137-145) mmol/L Potassium (3.5-5.1) mmol/L Chloride (98-107) mmol/L Carbon Dioxide (22-30) mmol/L Anion Gap mmol/L BUN (7-17) mg/dL Creatinine (0.52-1.04) mg/dL Est GFR (MDRD) Af Amer (>60 ml/min/1.73 sqM) Est GFR (MDRD) Non-Af (>60 ml/min/1.73 sqM) Glucose (74-99) mg/dL Plasma Lactic Acid Cristian 1.2 (0.7-2.0) mmol/L Calcium (8.4-10.2) mg/dL Total Bilirubin (0.2-1.3) mg/dL AST (14-36) U/L ALT (9-52) U/L Alkaline Phosphatase (38-126) U/L Total Protein (6.3-8.2) g/dL Albumin (3.5-5.0) g/dL Urine Color Yellow Urine Appearance Clear (Clear) Urine pH 6.0 (5.0-8.0) Ur Specific [place] 1.015 (1.001-1.035) Urine Protein Negative (Negative) Urine Glucose (UA) 3+ H (Negative) Urine Ketones Trace H (Negative) Urine Blood Negative (Negative) Urine Nitrite Negative (Negative) Urine Bilirubin Negative (Negative) Urine Urobilinogen <2.0 (<2.0) mg/dL Ur Leukocyte Esterase Negative (Negative) Influenza Type A RNA (Not Detectd) Influenza Type B (PCR) (Not Detectd) - Radiology Data Radiology results: report reviewed, image reviewed Disposition Clinical Impression: Influenza A Disposition: HOME SELF-CARE Condition: Stable Instructions: Fever in Adults (ED), Influenza (ED) Additional Instructions: Please use medication as discussed. Please follow up with family doctor if symptoms have not improved over the next two days. Please return to the emergency room if your symptoms increase or worsen or for any other concerns. Prescriptions: Oseltamivir [Tamiflu] 75 mg PO Q12HR #9 cap Referrals: Quang Hebert MD [Primary Care Provider] - 1-2 days Time of Disposition: 09:43
[2017-05-27 09:11] LABS: Basophils % (A) 0 %; Eosinophils # (A) 0.1 k/uL (0-0.7); Eosinophils % (A) 1 %; HCT 36.4 % (34.0-46.0); HGB 12.1 gm/dL (11.4-16.0); Lymphocytes # (A) 0.7 k/uL (1.0-4.8); Lymphocytes % (A) 19 %; MCH 31.9 pg (25.0-35.0); MCHC 33.1 g/dL (31.0-37.0); MCV 96.3 fL (80.0-100.0); Mean Platelet Volume 8.5; Monocytes # (A) 0.2 k/uL (0-1.0); Monocytes % (A) 5 %; Neutrophils # (A) 2.8 k/uL (1.3-7.7); Neutrophils % (A) 73 %; Platelet Count 148 k/uL (150-450); RBC 3.78 m/uL (3.80-5.40); RDW 13.5 % (11.5-15.5); WBC 3.9 k/uL (3.8-10.6)
[2017-05-27 09:12] LABS: Appearance,Urine Clear (Clear); Bilirubin,Urine Negative (Negative); Blood,Urine Negative (Negative); Color,Urine Yellow; Glucose,Urine (UA) 3+ (Negative); Ketones,Urine Trace (Negative); Leukocyte Esterase,Urine Negative (Negative); Nitrite,Urine Negative (Negative); Protein,Urine Negative (Negative); Specific Gravity,Urine 1.015 (1.001-1.035); Urobilinogen,Urine <2.0 mg/dL (<2.0)
[2017-05-27 09:19] LABS: ALT 27 U/L (9-52); AST 27 U/L (14-36); Albumin 3.9 g/dL (3.5-5.0); Alkaline Phosphatase 68 U/L (38-126); Anion Gap 11 mmol/L; Blood Urea Nitrogen 12 mg/dL (7-17); Calcium 9.7 mg/dL (8.4-10.2); Carbon Dioxide 28 mmol/L (22-30); Chloride 97 mmol/L (98-107); Glucose 241 mg/dL (74-99); Potassium 4.3 mmol/L (3.5-5.1); Sodium 136 mmol/L (137-145); Total Bilirubin 0.4 mg/dL (0.2-1.3); Total Protein 6.8 g/dL (6.3-8.2)
[2017-05-27] MEDS ORDERED: OSELTAMIVIR 75 MG CAP PO STA (09:23)
--- NOTE | 2017-05-27 09:31 | XR ---
EXAMINATION TYPE: XR chest 2V DATE OF EXAM: 05/27/2017 COMPARISON: Chest x-ray May 08, 2017. HISTORY: Cough and fever for 3 days. TECHNIQUE: Frontal and lateral views of the chest are obtained. FINDINGS: There is no focal air space opacity, pleural effusion, or pneumothorax seen. The cardiac silhouette size is stable and enlarged with dual lead pacemaker and atherosclerotic aorta. The osse ous structures are intact. Cholecystectomy clips are noted on lateral view. IMPRESSION: Mild cardiomegaly without suspicious acute pulmonary process. No significant change from prior.
[2017-05-27] MEDS ORDERED: ACETAMINOPHEN TAB 500 MG TAB PO STA (09:44)
[2017-05-27] MEDS ORDERED: IBUPROFEN 600 MG TAB PO STA (09:44)
[2017-05-27 10:12] VITALS: BP 159/70; PULSE 97; RESP 18; TEMP 97.8
== END 2017-05-27 10:00 | disposition home or self-care (01) ==
LOC: EC 08:03
DX: J10.1 Influenza due to other identified influenza virus with other respiratory manifestations (principal); E11.9 Type 2 diabetes mellitus without complications; E78.5 Hyperlipidemia, unspecified; I10 Essential (primary) hypertension; F32.9 Major depressive disorder, single episode, unspecified; I48.91 Unspecified atrial fibrillation; Z79.01 Long term (current) use of anticoagulants; Z88.1 Allergy status to other antibiotic agents; Z79.4 Long term (current) use of insulin; Z79.899 Other long term (current) drug therapy
CPT/HCPCS: 36415; 71046; 80053; 81003; 83605; 85025; 87040; 87086; 87502; 96360; 99283

== ENCOUNTER 2019-03-16 01:33 | Emergency (ER) | payer MEDICARE ==
[2019-03-16] MEDS ORDERED: DEXTROSE 50% SYRINGE 50 ML IVP STA (01:37)
[2019-03-16 01:45] VITALS: RESP 16
[2019-03-16 01:47] LABS: Glucose,Whole Blood 45 mg/dL (75-99)
[2019-03-16] MEDS ORDERED: DEXTROSE 5% IN WATER 1,000 ML IV ONE (02:00)
[2019-03-16 02:08] LABS: Glucose,Whole Blood 129 mg/dL (75-99)
[2019-03-16 02:13] LABS: Basophils # (A) 0.1 k/uL (0-0.2); Basophils % (A) 1 %; Eosinophils # (A) 0.1 k/uL (0-0.7); Eosinophils % (A) 2 %; HCT 36.5 % (34.0-46.0); HGB 12.1 gm/dL (11.4-16.0); Lymphocytes # (A) 1.9 k/uL (1.0-4.8); Lymphocytes % (A) 36 %; MCH 31.9 pg (25.0-35.0); MCHC 33.3 g/dL (31.0-37.0); MCV 95.7 fL (80.0-100.0); Mean Platelet Volume 7.2; Monocytes # (A) 0.3 k/uL (0-1.0); Monocytes % (A) 7 %; Neutrophils # (A) 2.8 k/uL (1.3-7.7); Neutrophils % (A) 53 %; Platelet Count 151 k/uL (150-450); RBC 3.81 m/uL (3.80-5.40); RDW 12.9 % (11.5-15.5); WBC 5.2 k/uL (3.8-10.6)
[2019-03-16 02:28] LABS: Glucose,Whole Blood 98 mg/dL (75-99)
--- NOTE | 2019-03-16 02:41 | ED ---
General Adult HPI - General Source: patient, EMS Mode of arrival: EMS Limitations: no limitations <Lucia Sutton - Last Filed: 03/16/19 03:57> <Jorge Sorto - Last Filed: 03/16/19 05:54> - General Chief complaint: Recheck/Abnormal Lab/Rx Stated complaint: low blood sugar Time Seen by Provider: 03/16/19 01:37 - History of Present Illness Initial comments: 73-year-old female patient presents to the emergency department today for evaluation of hypoglycemia. Patient's family called ambulatory altered mental status, upon EMS arrival blood sugars found to be 25. She was given an amp of dextrose 50% in the ambulance which did improve symptoms. Upon arrival sugar was decreased again to 45. Patient believes she may have switched her NovoLog and Lantus insulins. States that she generally takes 30 units of Lantus at night. is present and states that this is the 10th time she has had a hypoglycemic episode in the last month. She is currently reporting nausea but no other symptoms. Patient denies any recent rash, fever, chills, shortness breath, chest pain, abdominal pain, diarrhea, constipation, back pain, numbness, tingling, dizziness, weakness, hematuria, dysuria, urinary urgency, urinary frequency, headache, visual changes, or any other complaints. (Lucia Sutton) - Related Data Home Medications Medication Instructions Recorded Confirmed Atenolol 100 mg PO DAILY 03/09/17 05/27/17 Dabigatran [Pradaxa] 150 mg PO BID 03/09/17 05/27/17 FLUoxetine HCL 40 mg PO DAILY 03/09/17 05/27/17 Insulin Aspart [NovoLOG] See Protocol SQ AC-TID 03/09/17 05/27/17 Insulin Glargine [Lantus] 30 unit SQ HS 03/09/17 05/27/17 Levothyroxine Sodium [Synthroid] 75 mcg PO DAILY 03/09/17 05/27/17 Pravastatin Sodium [Pravachol] 40 mg PO DAILY 03/09/17 05/27/17 Ramipril 2.5 mg PO DAILY 03/09/17 05/27/17 Ibandronate Sodium [Boniva] 150 mg PO Q30D 05/08/17 05/27/17 Hydrocodone/Acetaminophen [[place] 1 tab PO Q6HR PRN 05/12/17 05/27/17 5-325] Acetaminophen/Diphenhydramine 2 tab PO ONCE 05/27/17 05/27/17 [Tylenol PM 500-25mg] Previous Rx's Medication Instructions Recorded ALPRAZolam [Xanax] 0.5 mg PO BID PRN #20 tablet 11/08/14 Ondansetron Odt [Zofran ODT] 4 mg PO Q8HR PRN #20 tab 05/08/17 Tamsulosin [Flomax] 0.4 mg PO DAILY #5 cap 05/08/17 Oseltamivir [Tamiflu] 75 mg PO Q12HR #9 cap 05/27/17 Allergies Allergy/AdvReac Type Severity Reaction Status Date / Time ofloxacin [From Floxin] Allergy Unknown Verified 05/27/17 08:52 Review of Systems ROS Other: All systems not noted in ROS Statement are negative. <Lucia Sutton - Last Filed: 03/16/19 03:57> ROS Other: All systems not noted in ROS Statement are negative. <Jorge Sorto - Last Filed: 03/16/19 05:54> ROS Statement: Those systems with pertinent positive or pertinent negative responses have been documented in the HPI. Past Medical History Past Medical History: Atrial Fibrillation, Diabetes Mellitus, Hyperlipidemia, Hypertension History of Any Multi-Drug Resistant Organisms: None Reported Past Surgical History: Appendectomy, Cardiac Ablation, Cholecystectomy, Hysterectomy, Joint Replacement, Orthopedic Surgery, Pacemaker Additional Past Surgical History / Comment(s): lt knee replacement Past Anesthesia/Blood Transfusion Reactions: Family History of Problems w/ Anesthesia, Motion Sickness Additional Past Anesthesia/Blood Transfusion Reaction / Comment(s): pt states si blings are "allergic" to anesthesia experience hives and breathing difficulties Type of Cardiac Device: Permanent Pacemaker Device Placement Date:: 2013 Past Psychological History: Depression Smoking Status: Never smoker Past Alcohol Use History: Occasional Past Drug Use History: None Reported - Past Family History Brother(s) Family Medical History: Cancer Additional Family Medical History / Comment(s): colorectal,multiple myeloma Sister(s) Family Medical History: Cancer, CVA/TIA Additional Family Medical History / Comment(s): breast,colorectal cancer Son(s) Family Medical History: Cancer Additional Family Medical History / Comment(s): leukemia <Lucia Sutton Last Filed: 03/16/19 03:57> General Exam Limitations: no limitations General appearance: alert, in no apparent distress, other (This is a well- developed, well-nourished adult female patient who appears pale and diaphoretic. Vital signs upon presentation are temperature 98.0F, pulse 64, respirations 16, blood pressure 154/80, pulse ox 98% on room air.) Eye exam: Present: normal appearance, PERRL, EOMI. Absent: scleral icterus, conjunctival injection, periorbital swelling ENT exam: Present: normal exam, normal oropharynx, mucous membranes moist Respiratory exam: Present: normal lung sounds bilaterally. Absent: respiratory distress, wheezes, rales, rhonchi, stridor Cardiovascular Exam: Present: regular rate, normal rhythm, normal heart sounds. Absent: systolic murmur, diastolic murmur, rubs, gallop, clicks GI/Abdominal exam: Present: soft, normal bowel sounds. Absent: distended, tenderness, guarding, rebound, rigid Neurological exam: Present: alert, CN II-XII intact. Absent: oriented X3 (2) Psychiatric exam: Present: normal affect, normal mood Skin exam: Present: warm, intact, diaphoretic, pallor. Absent: rash <XenaDion neffina Vicki - Last Filed: 03/16/19 03:57> Course Vital Signs 03/16/19 01:35 Temperature 98.0 F Pulse Rate 64 Respiratory 16 Rate Blood Pressure 154/80 O2 Sat by Pulse 98 Oximetry EKG Findings - EKG Comments: EKG Findings:: EKG is obtained at 0147 shows AV dual paced rhythm with prolonged AV conduction with occasional PVCs. Ventricular rate is 78, MO interval 324, QRS duration 102, QTc 450, QTC 413. No evidence of ST elevation or depression. <HermanLucia M - Last Filed: 03/16/19 03:57> Medical Decision Making - Lab Data Result diagrams: 03/16/19 02:06 03/16/19 02:06 <HermanLucia M - Last Filed: 03/16/19 03:57> - Lab Data Result diagrams: 03/16/19 02:06 03/16/19 02:06 <Jorge Sorto - Last Filed: 11/13/19 05:54> - Medical Decision Making 73-year-old female patient presented to the emergency department today for evaluation of altered mental status and low blood sugar. Physical examination did reveal pale diaphoretic skin. She was somewhat confused, slow to respond but was answering questions appropriately. Sugar was found to be 45 upon arrival. We did give 25 g of 50% dextrose. Started dextrose 5% infusion. Patient was tolerating oral intake. Sugars continue to down trend. Potassium was low at 2.8, we did replace oral and IV. Dr. Sorto will be taking over care and monitoring patient and blood sugar. (Lucia Sutton) - Lab Data Lab Results 03/16/19 03/16/19 03/16/19 Range/Units 01:37 02:04 02:06 WBC 5.2 (3.8-10.6) k/uL RBC 3.81 (3.80-5.40) m/uL Hgb 12.1 (11.4-16.0) gm/dL Hct 36.5 (34.0-46.0) % MCV 95.7 (80.0-100.0) fL MCH 31.9 (25.0-35.0) pg MCHC 33.3 (31.0-37.0) g/dL RDW 12.9 (11.5-15.5) % Plt Count 151 (150-450) k/uL Neutrophils % 53 % Lymphocytes % 36 % Monocytes % 7 % Eosinophils % 2 % Basophils % 1 % Neutrophils # 2.8 (1.3-7.7) k/uL Lymphocytes # 1.9 (1.0-4.8) k/uL Monocytes # 0.3 (0-1.0) k/uL Eosinophils # 0.1 (0-0.7) k/uL Basophils # 0.1 (0-0.2) k/uL Sodium (137-145) mmol/L Potassium (3.5-5.1) mmol/L Chloride (98-107) mmol/L Carbon Dioxide (22-30) mmol/L Anion Gap mmol/L BUN (7-17) mg/dL Creatinine (0.52-1.04) mg/dL Est GFR (CKD-EPI)AfAm (>60 ml/min/1.73 sqM) Est GFR (CKD-EPI)NonAf (>60 ml/min/1.73 sqM) Glucose (74-99) mg/dL POC Glucose (mg/dL) 45 L 129 H (75-99) mg/dL POC Glu Surveillance System Monitor ID Cindy Livingston Taylor Calcium (8.4-10.2) mg/dL Total Bilirubin (0.2-1.3) mg/dL AST (14-36) U/L ALT (9-52) U/L Alkaline Phosphatase (38-126) U/L Total Protein (6.3-8.2) g/dL Albumin (3.5-5.0) g/dL Urine Color Urine Appearance (Clear) Urine pH (5.0-8.0) Ur Specific [place] (1.001-1.035) Urine Protein (Negative) Urine Glucose (UA) (Negative) Urine Ketones (Negative) Urine Blood (Negative) Urine Nitrite (Negative) Urine Bilirubin (Negative) Urine Urobilinogen (<2.0) mg/dL Ur Leukocyte Esterase (Negative) 03/16/19 03/16/19 03/16/19 Range/Units 02:06 02:22 03:11 WBC (3.8-10.6) k/uL RBC (3.80-5.40) m/uL Hgb (11.4-16.0) gm/dL Hct (34.0-46.0) % MCV (80.0-100.0) fL MCH (25.0-35.0) pg MCHC (31.0-37.0) g/dL RDW (11.5-15.5) % Plt Count (150-450) k/uL Neutrophils % % Lymphocytes % % Monocytes % % Eosinophils % % Basophils % % Neutrophils # (1.3-7.7) k/uL Lymphocytes # (1.0-4.8) k/uL Monocytes # (0-1.0) k/uL Eosinophils # (0-0.7) k/uL Basophils # (0-0.2) k/uL Sodium 140 (137-145) mmol/L Potassium 2.8 L (3.5-5.1) mmol/L Chloride 107 (98-107) mmol/L Carbon Dioxide 24 (22-30) mmol/L Anion Gap 9 mmol/L BUN 19 H (7-17) mg/dL Creatinine 0.62 (0.52-1.04) mg/dL Est GFR (CKD-EPI)AfAm >90 (>60 ml/min/1.73 sqM) Est GFR (CKD-EPI)NonAf 89 (>60 ml/min/1.73 sqM) Glucose 136 H (74-99) mg/dL POC Glucose (mg/dL) 98 78 (75-99) mg/dL POC Glu Surveillance System Monitor ID Yara, Cindy Yara, Cindy Calcium 9.9 (8.4-10.2) mg/dL Total Bilirubin 0.5 (0.2-1.3) mg/dL AST 34 (14-36) U/L ALT 22 (9-52) U/L Alkaline Phosphatase 61 (38-126) U/L Total Protein 6.5 (6.3-8.2) g/dL Albumin 3.6 (3.5-5.0) g/dL Urine Color Urine Appearance (Clear) Urine pH (5.0-8.0) Ur Specific [place] (1.001-1.035) Urine Protein (Negative) Urine Glucose (UA) (Negative) Urine Ketones (Negative) Urine Blood (Negative) Urine Nitrite (Negative) Urine Bilirubin (Negative) Urine Urobilinogen (<2.0) mg/dL Ur Leukocyte Esterase (Negative) 03/16/19 03/16/19 03/16/19 Range/Units 03:46 04:30 04:50 WBC (3.8-10.6) k/uL RBC (3.80-5.40) m/uL Hgb (11.4-16.0) gm/dL Hct (34.0-46.0) % MCV (80.0-100.0) fL MCH (25.0-35.0) pg MCHC (31.0-37.0) g/dL RDW (11.5-15.5) % Plt Count (150-450) k/uL Neutrophils % % Lymphocytes % % Monocytes % % Eosinophils % % Basophils % % Neutrophils # (1.3-7.7) k/uL Lymphocytes # (1.0-4.8) k/uL Monocytes # (0-1.0) k/uL Eosinophils # (0-0.7) k/uL Basophils # (0-0.2) k/uL Sodium (137-145) mmol/L Potassium (3.5-5.1) mmol/L Chloride (98-107) mmol/L Carbon Dioxide (22-30) mmol/L Anion Gap mmol/L BUN (7-17) mg/dL Creatinine (0.52-1.04) mg/dL Est GFR (CKD-EPI)AfAm (>60 ml/min/1.73 sqM) Est GFR (CKD-EPI)NonAf (>60 ml/min/1.73 sqM) Glucose (74-99) mg/dL POC Glucose (mg/dL) 70 L 97 (75-99) mg/dL POC Glu Surveillance System Monitor Libia Posada Taylor Calcium (8.4-10.2) mg/dL Total Bilirubin (0.2-1.3) mg/dL AST (14-36) U/L ALT (9-52) U/L Alkaline Phosphatase (38-126) U/L Total Protein (6.3-8.2) g/dL Albumin (3.5-5.0) g/dL Urine Color Yellow Urine Appearance Clear (Clear) Urine pH 5.5 (5.0-8.0) Ur Specific [place] 1.015 (1.001-1.035) Urine Protein Negative (Negative) Urine Glucose (UA) 2+ H (Negative) Urine Ketones Negative (Negative) Urine Blood Negative (Negative) Urine Nitrite Negative (Negative) Urine Bilirubin Negative (Negative) Urine Urobilinogen <2.0 (<2.0) mg/dL Ur Leukocyte Esterase Negative (Negative) 03/16/19 Range/Units 05:29 WBC (3.8-10.6) k/uL RBC (3.80-5.40) m/uL Hgb (11.4-16.0) gm/dL Hct (34.0-46.0) % MCV (80.0-100.0) fL MCH (25.0-35.0) pg MCHC (31.0-37.0) g/dL RDW (11.5-15.5) % Plt Count (150-450) k/uL Neutrophils % % Lymphocytes % % Monocytes % % Eosinophils % % Basophils % % Neutrophils # (1.3-7.7) k/uL Lymphocytes # (1.0-4.8) k/uL Monocytes # (0-1.0) k/uL Eosinophils # (0-0.7) k/uL Basophils # (0-0.2) k/uL Sodium (137-145) mmol/L Potassium (3.5-5.1) mmol/L Chloride (98-107) mmol/L Carbon Dioxide (22-30) mmol/L Anion Gap mmol/L BUN (7-17) mg/dL Creatinine (0.52-1.04) mg/dL Est GFR (CKD-EPI)AfAm (>60 ml/min/1.73 sqM) Est GFR (CKD-EPI)NonAf (>60 ml/min/1.73 sqM) Glucose (74-99) mg/dL POC Glucose (mg/dL) 133 H (75-99) mg/dL POC Glu Surveillance System Monitor ID Cindy Livingston Calcium (8.4-10.2) mg/dL Total Bilirubin (0.2-1.3) mg/dL AST (14-36) U/L ALT (9-52) U/L Alkaline Phosphatase (38-126) U/L Total Protein (6.3-8.2) g/dL Albumin (3.5-5.0) g/dL Urine Color Urine Appearance (Clear) Urine pH (5.0-8.0) Ur Specific [place] (1.001-1.035) Urine Protein (Negative) Urine Glucose (UA) (Negative) Urine Ketones (Negative) Urine Blood (Negative) Urine Nitrite (Negative) Urine Bilirubin (Negative) Urine Urobilinogen (<2.0) mg/dL Ur Leukocyte Esterase (Negative) Disposition <Lucia Sutton - Last Filed: 03/16/19 03:57> Is patient prescribed a controlled substance at d/c from ED?: No <Jorge Sorto - Last Filed: 03/16/19 05:54> Clinical Impression: Hypokalemia, Hypoglycemia Disposition: HOME SELF-CARE Condition: Good Instructions (If sedation given, give patient instructions): Hypoglycemia in a Person with Diabetes (ED) Referrals: Quang Hebert MD [Primary Care Provider] - 1-2 days
[2019-03-16 02:52] LABS: ALT 22 U/L (9-52); AST 34 U/L (14-36); African American GFR (CKD) >90 (>60 ml/min/1.73 sqM); Albumin 3.6 g/dL (3.5-5.0); Alkaline Phosphatase 61 U/L (38-126); Anion Gap 9 mmol/L; Blood Urea Nitrogen 19 mg/dL (7-17); Calcium 9.9 mg/dL (8.4-10.2); Carbon Dioxide 24 mmol/L (22-30); Chloride 107 mmol/L (98-107); Glucose 136 mg/dL (74-99); Potassium 2.8 mmol/L (3.5-5.1); Sodium 140 mmol/L (137-145); Total Bilirubin 0.5 mg/dL (0.2-1.3); Total Protein 6.5 g/dL (6.3-8.2)
[2019-03-16 03:13] LABS: Glucose,Whole Blood 78 mg/dL (75-99)
[2019-03-16] MEDS ORDERED: Potassium Replacement Protocol 1 EACH MISC MISCELLANE PRN (03:15)
[2019-03-16] MEDS ORDERED: POTASSIUM CHLORIDE ER 20 MEQ TAB.ER PO STA (03:16)
[2019-03-16 03:47] LABS: Glucose,Whole Blood 70 mg/dL (75-99)
[2019-03-16] MEDS: POTASSIUM CHLORIDE 10 MEQ in WATER FOR INJECTION 1 100ML.BAG IVPB SCH ×2 (04:06→05:03)
[2019-03-16 04:31] LABS: Glucose,Whole Blood 97 mg/dL (75-99)
[2019-03-16 05:10] LABS: Appearance,Urine Clear (Clear); Bilirubin,Urine Negative (Negative); Blood,Urine Negative (Negative); Color,Urine Yellow; Glucose,Urine (UA) 2+ (Negative); Ketones,Urine Negative (Negative); Leukocyte Esterase,Urine Negative (Negative); Nitrite,Urine Negative (Negative); PH, Urine 5.5 (5.0-8.0); Protein,Urine Negative (Negative); Specific Gravity,Urine 1.015 (1.001-1.035); Urobilinogen,Urine <2.0 mg/dL (<2.0)
[2019-03-16 05:33] LABS: Glucose,Whole Blood 133 mg/dL (75-99)
[2019-03-16 06:49] VITALS: BP 142/70; PULSE 68; TEMP 97.9
== END 2019-03-16 06:49 | disposition home or self-care (01) ==
LOC: EC 01:33
DX: E11.649 Type 2 diabetes mellitus with hypoglycemia without coma (principal); E87.6 Hypokalemia; I48.91 Unspecified atrial fibrillation; E78.5 Hyperlipidemia, unspecified; I10 Essential (primary) hypertension; F32.9 Major depressive disorder, single episode, unspecified; Z79.01 Long term (current) use of anticoagulants; Z79.4 Long term (current) use of insulin; Z79.890 Hormone replacement therapy; Z79.899 Other long term (current) drug therapy; Z88.1 Allergy status to other antibiotic agents; Z95.0 Presence of cardiac pacemaker
CPT/HCPCS: 36415; 80053; 81003; 85025; 93005; 96361; 96374; 99285

== ENCOUNTER → 2019-12-12 | Outpatient (CLI) | payer MEDICARE ==
--- NOTE | 2019-12-12 09:17 | CT ---
EXAMINATION TYPE: CT brain wo con DATE OF EXAM: 12/12/2019 HISTORY: Headache and dizziness without injury for [address] DLP: 999.8 mGycm. Automated Exposure Control for Dose Reduction was Utilized. TECHNIQUE: CT scan of the head is performed without contrast. COMPARISON: None. FINDINGS: There is no acute intracranial hemorrhage or midline shift identified. There is diffuse v entricular and sulcal prominence consistent with diffuse age-related cerebral atrophy. There is low- attenuation in the periventricular white matter consistent with chronic small vessel ischemic change. Hyperostosis frontalis. The globes are intact and the visualized sinuses are clear. Vascular calci fication distal internal carotid arteries bilaterally is present. IMPRESSION: No acute intracranial hemorrhage or midline shift. There is mild to moderate diffuse ag e-related cerebral atrophy and moderate to severe chronic small vessel ischemic change noted.
== END | disposition home or self-care (01) ==
LOC: RADCTMAIN 07:26
PROVIDERS: ATTEND Internal Medicine
DX: I67.82 Cerebral ischemia (principal); G31.9 Degenerative disease of nervous system, unspecified
CPT/HCPCS: 70450

== ENCOUNTER → 2020-11-05 | Outpatient (CLI) | payer MEDICARE | END | disposition home or self-care (01) | CPT/HCPCS: 72131 ==

== ENCOUNTER 2021-11-13 09:32 | Observation (INO) | payer MEDICARE ==
--- NOTE | 2021-11-13 09:56 | ED ---
General Adult HPI - General Chief complaint: Fall Stated complaint: Fall/hit head/blood thinner Time Seen by Provider: 11/13/21 09:42 Source: patient, family, RN notes reviewed Mode of arrival: wheelchair Limitations: no limitations - History of Present Illness Initial comments: Patient is a pleasant 76-year-old female presenting to the emergency department following syncopal episode. Patient was doing dishes in the kitchen when she passed out. Patient does not recall the episode well. Patient believes she did strike her head. No headache. Patient has palpitations, sensation in her heart rate is beating fast. No chest pain. No dyspnea. No weakness. Patient does not feel confused. Patient has chronic dementia, grandson states patient's responses are slightly slower than normal. - Related Data Home Medications Medication Instructions Recorded Confirmed Dabigatran [Pradaxa] 150 mg PO BID 03/09/17 05/27/17 FLUoxetine HCL 40 mg PO DAILY 03/09/17 05/27/17 Insulin Aspart [NovoLOG] See Protocol SQ AC-TID 03/09/17 05/27/17 Insulin Glargine [Lantus] 30 unit SQ HS 03/09/17 05/27/17 Levothyroxine Sodium [Synthroid] 75 mcg PO DAILY 03/09/17 05/27/17 Pravastatin Sodium [Pravachol] 40 mg PO DAILY 03/09/17 05/27/17 Ramipril 2.5 mg PO DAILY 03/09/17 05/27/17 atenoloL 100 mg PO DAILY 03/09/17 05/27/17 Ibandronate Sodium [Boniva] 150 mg PO Q30D 05/08/17 05/27/17 Hydrocodone/Acetaminophen [[place] 1 tab PO Q6HR PRN 05/12/17 05/27/17 5-325] Acetaminophen/Diphenhydramine 2 tab PO ONCE 05/27/17 05/27/17 [Tylenol PM 500-25mg] Previous Rx's Medication Instructions Recorded ALPRAZolam [Xanax] 0.5 mg PO BID PRN #20 tablet 11/08/14 Ondansetron Odt [Zofran ODT] 4 mg PO Q8HR PRN #20 tab 05/08/17 Tamsulosin [Flomax] 0.4 mg PO DAILY #5 cap 05/08/17 Oseltamivir [Tamiflu] 75 mg PO Q12HR #9 cap 05/27/17 Allergies Allergy/AdvReac Type Severity Reaction Status Date / Time ofloxacin [From Floxin] Allergy Unknown Verified 11/13/21 09:39 Review of Systems ROS Statement: Those systems with pertinent positive or pertinent negative responses have been documented in the HPI. ROS Other: All systems not noted in ROS Statement are negative. Constitutional: Denies: fever Eyes: Denies: eye pain ENT: Denies: ear pain Respiratory: Denies: cough Cardiovascular: Reports: palpitations. Denies: chest pain Endocrine: Denies: fatigue Gastrointestinal: Denies: abdominal pain Genitourinary: Denies: dysuria Musculoskeletal: Denies: back pain Skin: Denies: rash Neurological: Reports: as per HPI. Denies: headache, weakness Past Medical History Past Medical History: Atrial Fibrillation, Diabetes Mellitus, Hyperlipidemia, Hypertension History of Any Multi-Drug Resistant Organisms: None Reported Past Surgical History: Appendectomy, Cardiac Ablation, Cholecystectomy, Hysterectomy, Joint Replacement, Orthopedic Surgery, Pacemaker Additional Past Surgical History / Comment(s): lt knee replacement Past Anesthesia/Blood Transfusion Reactions: Family History of Problems w/ Anesthesia, Motion Sickness Additional Past Anesthesia/Blood Transfusion Reaction / Comment(s): pt states siblings are "allergic" to anesthesia experience hives and breathing difficulties Type of Cardiac Device: Permanent Pacemaker Device Placement Date:: 2013 Past Psychological History: Depression Past Alcohol Use History: Occasional Past Drug Use History: None Reported - Past Family History Brother(s) Family Medical History: Cancer Additional Family Medical History / Comment(s): colorectal,multiple myeloma Sister(s) Family Medical History: Cancer, CVA/TIA Additional Family Medical History / Comment(s): breast,colorectal cancer Son(s) Family Medical History: Cancer Additional Family Medical History / Comment(s): leukemia General Exam Limitations: no limitations General appearance: alert, in no apparent distress Head exam: Present: atraumatic, normocephalic Eye exam: Present: normal appearance, PERRL, EOMI. Absent: nystagmus ENT exam: Present: normal oropharynx Neck exam: Present: normal inspection. Absent: tenderness Respiratory exam: Present: normal lung sounds bilaterally Cardiovascular Exam: Present: regular rate, normal rhythm Expanded Peripheral pulses: 2+: Radial (R), Radial (L), Posterior Tibialis (R), Posterior Tibialis (L) GI/Abdominal exam: Present: soft. Absent: tenderness Extremities exam: Present: normal inspection. Absent: pedal edema, calf tenderness Neurological exam: Present: alert, oriented X3, CN II-XII intact. Absent: motor sensory deficit Expanded Neurological exam: Present: protecting the airway, other (Slightly delayed speech pattern) Patient oriented to: Present: person, place, time Cranial nerves: EOM's Intact: Normal, Facial Sensation: Normal Sensory exam: Upper Extremity Light Touch: Normal, Lower Extremity Light Touch: Normal Motor strength exam: RUE: 5, LUE: 5, RLE: 5, LLE: 5 Eye Response: (4) open spontaneously Motor Response: (6) obeys commands Verbal Response: (5) oriented Psychiatric exam: Present: normal affect, normal mood Skin exam: Present: normal color Course Vital Signs 11/13/21 09:34 Temperature 97.5 F L Pulse Rate 78 Respiratory 18 Rate Blood Pressure 136/73 O2 Sat by Pulse 98 Oximetry EKG Findings - EKG Comments: EKG Findings:: Sinus rhythm 66. For screening AV block OK 233. QRS 11. QT 4:15. QTc 429 left axis. Septal Q waves. No acute ST change. Medical Decision Making - Medical Decision Making Patient reevaluated. Patient resting comfortably in bed. Son states patient is acting a little bit better. Patient and family updated on results and plan. [facility] physician group has been paged to cover for hospital observation call. Case was discussed with [facility] emergency department physician. They would like to evaluate patient prior to any consult placed - Lab Data Result diagrams: 11/13/21 10:04 11/13/21 10:04 Lab Results 11/13/21 11/13/21 11/13/21 Range/Units 10:04 10:04 10:04 WBC 7.0 (3.8-10.6) k/uL RBC 4.00 (3.80-5.40) m/uL Hgb 12.7 (11.4-16.0) gm/dL Hct 38.4 (34.0-46.0) % MCV 95.9 (80.0-100.0) fL MCH 31.7 (25.0-35.0) pg MCHC 33.1 (31.0-37.0) g/dL RDW 13.7 (11.5-15.5) % Plt Count 202 (150-450) k/uL MPV 8.2 Neutrophils % 59 % Lymphocytes % 32 % Monocytes % 5 % Eosinophils % 2 % Basophils % 1 % Neutrophils # 4.1 (1.3-7.7) k/uL Lymphocytes # 2.2 (1.0-4.8) k/uL Monocytes # 0.3 (0-1.0) k/uL Eosinophils # 0.1 (0-0.7) k/uL Basophils # 0.1 (0-0.2) k/uL PT 11.0 (9.0-12.0) sec INR 1.0 (<1.2) APTT 24.7 (22.0-30.0) sec Sodium 133 L (137-145) mmol/L Potassium 4.6 (3.5-5.1) mmol/L Chloride 104 (98-107) mmol/L Carbon Dioxide 21 L (22-30) mmol/L Anion Gap 8 mmol/L BUN 17 (7-17) mg/dL Creatinine 0.70 (0.52-1.04) mg/dL Est GFR (CKD-EPI)AfAm >90 (>60 ml/min/1.73 sqM) Est GFR (CKD-EPI)NonAf 83 (>60 ml/min/1.73 sqM) Glucose 213 H (74-99) mg/dL Calcium 9.9 (8.4-10.2) mg/dL Total Bilirubin 0.6 (0.2-1.3) mg/dL AST 27 (14-36) U/L ALT 16 (4-34) U/L Alkaline Phosphatase 60 (38-126) U/L Troponin I (0.000-0.034) ng/mL Total Protein 6.8 (6.3-8.2) g/dL Albumin 4.1 (3.5-5.0) g/dL Urine Color Urine Appearance (Clear) Urine pH (5.0-8.0) Ur Specific [place] (1.001-1.035) Urine Protein (Negative) Urine Glucose (UA) (Negative) Urine Ketones (Negative) Urine Blood (Negative) Urine Nitrite (Negative) Urine Bilirubin (Negative) Urine Urobilinogen (<2.0) mg/dL Ur Leukocyte Esterase (Negative) 11/13/21 11/13/21 Range/Units 10:04 11:08 WBC (3.8-10.6) k/uL RBC (3.80-5.40) m/uL Hgb (11.4-16.0) gm/dL Hct (34.0-46.0) % MCV (80.0-100.0) fL MCH (25.0-35.0) pg MCHC (31.0-37.0) g/dL RDW (11.5-15.5) % Plt Count (150-450) k/uL MPV Neutrophils % % Lymphocytes % % Monocytes % % Eosinophils % % Basophils % % Neutrophils # (1.3-7.7) k/uL Lymphocytes # (1.0-4.8) k/uL Monocytes # (0-1.0) k/uL Eosinophils # (0-0.7) k/uL Basophils # (0-0.2) k/uL PT (9.0-12.0) sec INR (<1.2) APTT (22.0-30.0) sec Sodium (137-145) mmol/L Potassium (3.5-5.1) mmol/L Chloride (98-107) mmol/L Carbon Dioxide (22-30) mmol/L Anion Gap mmol/L BUN (7-17) mg/dL Creatinine (0.52-1.04) mg/dL Est GFR (CKD-EPI)AfAm (>60 ml/min/1.73 sqM) Est GFR (CKD-EPI)NonAf (>60 ml/min/1.73 sqM) Glucose (74-99) mg/dL Calcium (8.4-10.2) mg/dL Total Bilirubin (0.2-1.3) mg/dL AST (14-36) U/L ALT (4-34) U/L Alkaline Phosphatase (38-126) U/L Troponin I <0.012 (0.000-0.034) ng/mL Total Protein (6.3-8.2) g/dL Albumin (3.5-5.0) g/dL Urine Color Light Yellow Urine Appearance Clear (Clear) Urine pH 8.0 (5.0-8.0) Ur Specific [place] 1.007 (1.001-1.035) Urine Protein Negative (Negative) Urine Glucose (UA) Negative (Negative) Urine Ketones Negative (Negative) Urine Blood Negative (Negative) Urine Nitrite Negative (Negative) Urine Bilirubin Negative (Negative) Urine Urobilinogen <2.0 (<2.0) mg/dL Ur Leukocyte Esterase Negative (Negative) - Radiology Data Radiology results: report reviewed (CT brain reveals no acute abnormality.), image reviewed (Chest x-ray shows cardiomegaly) Disposition Clinical Impression: Syncope Disposition: ADMITTED IP TO THIS HOSP Is patient prescribed a controlled substance at d/c from ED?: No Referrals: Odessa Lechuga MD [Primary Care Provider] - 1-2 days Time of Disposition: 12:52
[2021-11-13 10:17] LABS: Basophils # (A) 0.1 k/uL (0-0.2); Basophils % (A) 1 %; Eosinophils # (A) 0.1 k/uL (0-0.7); Eosinophils % (A) 2 %; HCT 38.4 % (34.0-46.0); HGB 12.7 gm/dL (11.4-16.0); Lymphocytes # (A) 2.2 k/uL (1.0-4.8); Lymphocytes % (A) 32 %; MCH 31.7 pg (25.0-35.0); MCHC 33.1 g/dL (31.0-37.0); MCV 95.9 fL (80.0-100.0); Mean Platelet Volume 8.2; Monocytes # (A) 0.3 k/uL (0-1.0); Monocytes % (A) 5 %; Neutrophils # (A) 4.1 k/uL (1.3-7.7); Neutrophils % (A) 59 %; Platelet Count 202 k/uL (150-450); RDW 13.7 % (11.5-15.5)
--- NOTE | 2021-11-13 10:23 | CT ---
EXAMINATION TYPE: CT brain girish wo con DATE OF EXAM: 11/13/2021 COMPARISON: 12/12/2019 HISTORY: syncope CT DLP: 1326.[address] of the brain was performed. The ventricles, basal cisterns and sulci overlying the cerebral convexities demonstrate mild enlargem ent. There is no evidence for intracranial hemorrhage or sulcal effacement. There is decreased attenuatio n about the periventricular white matter and deep white matter of both cerebral hemispheres, compatib le with chronic small vessel ischemia. No mass effects are seen. If symptoms persist consider MRI. Osseous calvarium is intact. IMPRESSION: 1. Age related atrophic and chronic small vessel ischemic change without acute intracranial process seen at this time. CT Cervical Spine: Unenhanced CT of the cervical spine was performed with bone and soft tissue window settings submitted . Coronal and sagittal reconstruction is obtained. There is normal alignment and prevertebral soft tissues. No evidence for acute cervical fracture . Scattered degenerative disc disease and spondylosis. Biapical scarring. IMPRESSION: 1. No evidence for acute fracture or subluxation of the cervical spine.
--- NOTE | 2021-11-13 10:24 | XR ---
EXAMINATION TYPE: XR chest 2V DATE OF EXAM: 11/13/2021 COMPARISON: Chest x-ray May 27, 2017 HISTORY: Syncope and weakness. TECHNIQUE: Frontal and lateral views of the chest are obtained. FINDINGS: There is no suspicious focal air space opacity, pleural effusion, or pneumothorax seen. T he cardiac silhouette size is mildly enlarged with dual lead pacemaker. The osseous structures are demineralized. IMPRESSION: Mild cardiomegaly without acute pulmonary process.
[2021-11-13 10:27] LABS: ALT 16 U/L (4-34); AST 27 U/L (14-36); African American GFR (CKD) >90 (>60 ml/min/1.73 sqM); Albumin 4.1 g/dL (3.5-5.0); Alkaline Phosphatase 60 U/L (38-126); Anion Gap 8 mmol/L; Blood Urea Nitrogen 17 mg/dL (7-17); Calcium 9.9 mg/dL (8.4-10.2); Carbon Dioxide 21 mmol/L (22-30); Chloride 104 mmol/L (98-107); Glucose 213 mg/dL (74-99); Non-African American GFR(CKD) 83 (>60 ml/min/1.73 sqM); Potassium 4.6 mmol/L (3.5-5.1); Sodium 133 mmol/L (137-145); Total Bilirubin 0.6 mg/dL (0.2-1.3); Total Protein 6.8 g/dL (6.3-8.2)
[2021-11-13 10:31] LABS: Partial Thromboplastin Time 24.7 sec (22.0-30.0)
[2021-11-13 11:23] LABS: Appearance,Urine Clear (Clear); Bilirubin,Urine Negative (Negative); Blood,Urine Negative (Negative); Color,Urine Light Yellow; Glucose,Urine (UA) Negative (Negative); Ketones,Urine Negative (Negative); Leukocyte Esterase,Urine Negative (Negative); Nitrite,Urine Negative (Negative); Protein,Urine Negative (Negative); Specific Gravity,Urine 1.007 (1.001-1.035); Urobilinogen,Urine <2.0 mg/dL (<2.0)
[2021-11-13] MEDS ORDERED: NALOXONE 0.4 MG/ML 1 ML VIAL IV PRN (12:53)
--- NOTE | 2021-11-13 14:30 | US ---
EXAMINATION TYPE: US carotid duplex BILAT DATE OF EXAM: 11/13/2021 COMPARISON: NONE CLINICAL HISTORY: syncope. Syncope EXAM MEASUREMENTS: RIGHT: Peak Systolic Velocity (PSV) cm/sec ----- Right CCA: 63.6 ----- Right ICA: 80.8 ----- Right ECA: 82.5 ICA/CCA ratio: 1.3 RIGHT: End Diastole cm/sec ----- Right CCA: 10.9 ----- Right ICA: 17.1 ----- Right ECA: 4.9 LEFT: Peak Systolic Velocity (PSV) cm/sec ----- Left CCA: 77.9 ----- Left ICA: 99.0 ----- Left ECA: 81.2 ICA/CCA ratio: 1.3 LEFT: End Diastole cm/sec ----- Left CCA: 18.4 ----- Left ICA: 29.0 ----- Left ECA: 0.0 VERTEBRALS (direction of flow): Right Vertebral: Antegrade Left Vertebral: Antegrade Rhythm: Normal Plaque noted bilaterally, no significant stenosis IMPRESSION: No evidence for hemodynamically significant stenosis. Criteria for Assigning % of Stenosis / Diameter reduction (Estimation based on the indirect measurements of the internal carotid artery velocities (ICA PSV). 1. Normal (no stenosis)=ICA PSV < 125 cm/s: ratio < 2.0: ICA EDV<40 cm/s. 2. Less than 50% stenosis=ICA PSV < 125 cm/s: ratio < 2.0: ICA EDV<40 cm/s. 3. 50 to 69% stenosis=ICA PSV of 125 to 230 cm/s: ration 2.0 ? 4.0: ICA EDV 40-100 cm/s. 4. Greater than 70% stenosis to near occlusion= ICA PSV > 230 cm/s: ratio > 4.0: ICA EDV > 100 cm/s. 5. Near occlusion= ICA PSV velocities may be low or undetectable: variable ratio and ICA EDV. 6. Total occlusion=unable to detect flow.
[2021-11-13 16:24] LABS: Glucose,Whole Blood 121 mg/dL (70-110)
[2021-11-13] MEDS ORDERED: ALPRAZolam 0.25 MG TAB PO PRN (18:36)
--- NOTE | 2021-11-13 18:51 | P.HPIM ---
History of Present Illness H&P Date: 11/13/21 Chief Complaint: SYNCOPE This is 76-year-old lady with a medical history significant for dementia, hypertension, diabetes mellitus, SSS status post pacemaker insertion and anxiety who presents after a syncopal episode. She is a poor historian due to her dementia and is quite tangential but can recall majority of the events. She states she was walking around the kitchen and all of a sudden lost consciousness. She believes she hit her head. Denies any lightheadedness prior to the event. Denied any chest pain, palpitations or any other symptoms. She states event was unwitnessed. She does not clear how long she was down. She was not confused after the event. Denied any tongue biting, urinary or fecal incontinence. She states she knocked on her grandsons bedroom door and he prompted her to come to the ED. She is currently back to baseline without symptoms. Review of Systems Pertinent positives and negatives in HPI. All other systems reviewed and negative. Past Medical History Past Medical History: Atrial Fibrillation, Diabetes Mellitus, Hyperlipidemia, Hypertension History of Any Multi-Drug Resistant Organisms: None Reported Past Surgical History: Appendectomy, Cardiac Ablation, Cholecystectomy, Hysterectomy, Joint Replacement, Orthopedic Surgery, Pacemaker Additional Past Surgical History / Comment(s): lt knee replacement Past Anesthesia/Blood Transfusion Reactions: Family History of Problems w/ Anesthesia, Motion Sickness Additional Past Anesthesia/Blood Transfusion Reaction / Comment(s): pt states siblings are "allergic" to anesthesia experience hives and breathing difficulties Type of Cardiac Device: Permanent Pacemaker Device Placement Date:: 2013 Past Psychological History: Depression Smoking Status: Never smoker Past Alcohol Use History: Occasional Past Drug Use History: None Reported - Past Family History Brother(s) Family Medical History: Cancer Additional Family Medical History / Comment(s): colorectal,multiple myeloma Sister(s) Family Medical History: Cancer, CVA/TIA Additional Family Medical History / Comment(s): breast,colorectal cancer Son(s) Family Medical History: Cancer, Diabetes Mellitus (States majority of her family has diabetes) Additional Family Medical History / Comment(s): leukemia Medications and Allergies Home Medications Medication Instructions Recorded Confirmed Type ALPRAZolam [Xanax] 0.25 mg PO BID 11/13/21 11/13/21 History Cholecalciferol [Vitamin D3 (25 25 mcg PO DAILY 11/13/21 11/13/21 History Mcg = 1000 Iu)] Cyanocobalamin [Vitamin B-12] 1,000 mcg PO DAILY 11/13/21 11/13/21 History Donepezil [Aricept] 5 mg PO HS 11/13/21 11/13/21 History Ibandronate Sodium [Boniva] 150 mg PO QMONTHLY 11/13/21 11/13/21 History Insulin Glargine,Hum.rec.anlog 10 units SQ HS 11/13/21 11/13/21 History [Lantus Solostar Pen] Insulin Glargine,Hum.rec.anlog 30 units SQ DAILY 11/13/21 11/13/21 History [Lantus Solostar Pen] Insulin Lispro [humaLOG Kwikpen] See Protocol SQ AC-TID 11/13/21 11/13/21 History Rosuvastatin [Crestor] 20 mg PO DAILY 11/13/21 11/13/21 History Allergies Allergy/AdvReac Type Severity Reaction Status Date / Time ofloxacin [From Floxin] Allergy Unknown Verified 11/13/21 14:11 Physical Exam Vitals: Vital Signs Temp Pulse Pulse Resp BP BP Pulse Ox 11/13/21 15:07 97.9 F 64 14 155/73 100 11/13/21 14:21 62 18 127/76 96 11/13/21 13:46 60 16 137/72 96 11/13/21 09:34 97.5 F L 78 18 136/73 98 Intake and Output 11/13/21 11/13/21 11/13/21 06:59 14:59 22:59 Other: Weight 73.028 kg 73.028 kg Constitutional: No acute distress, conversant, pleasant Eyes: Anicteric sclerae, moist conjunctiva, no lid-lag PERRL ENMT: NC/AT Oropharynx clear, no erythema, exudates Neck: Supple, FROM, no masses, or JVD Lungs: Clear to auscultation Clear to percussion Normal respiratory effort, no accessory muscle use Cardiovascular: Heart regular in rate and rhythm, No murmurs, gallops, or rubs No peripheral edema Abdominal: Soft Nontender, no guarding, rebound or rigidity Abdomen moving with respiration No hepatomegaly, No splenomegaly No palpable mass No abdominal wall hernia noted Skin: Normal temperature, tone, texture, turgor No induration No subcutaneous nodules No rash, lesions No ulcers Extremities: No digital cyanosis No clubbing No calf tenderness Psychiatric: Affect is normal, she is quite tangential. Neuro: Motor strength intact and equal bilateral extremities Sensation to light touch grossly present throughout Cranial nerves II-XII grossly intact No focal sensory deficits Results CBC & Chem 7: 11/13/21 10:04 11/13/21 10:04 Labs: Abnormal Lab Results - Last 24 Hours (Table) 11/13/21 11/13/21 Range/Units 10:04 16:22 Sodium 133 L (137-145) mmol/L Carbon Dioxide 21 L (22-30) mmol/L Glucose 213 H (74-99) mg/dL POC Glucose (mg/dL) 121 H (70-110) mg/dL Thrombosis Risk Factor Assmnt - DVT/VTE Prophylaxis DVT/VTE Prophylaxis: Mechanical Prophylaxis ordered - Choose All That Apply Any of the Below Risk Factors Present?: Yes Each Factor Represents 1 point: Obesity (BMI >25) Other Risk Factors: Yes Each Risk Factor Represents 3 Points: Age 75 years or older Other congenital or acquired thrombophilia - If yes, enter type in comment: No Thrombosis Risk Factor Assessment Total Risk Factor Score: 4 Thrombosis Risk Factor Assessment Level: Moderate Risk Assessment and Plan Assessment: Assessment and plan 1. Syncope CT head and cervical spine without acute process. Carotid ultrasound without significant stenosis. Echocardiogram ordered. Pacemaker interrogation. Orthostats. States she had a similar event before [place] in [place] and it was unclear what caused her syncope then. 2. DM 2 Blood sugar acceptable. Goal blood sugar 140-180 while in the hospital. Continue with long-acting insulin 20 units and short acting sliding scale with meals, we'll adjust accordingly. 3. Dementia Continue with donepezil 4. Hyperlipidemia Continue with statin 5. Anxiety Currently controlled. Continue Xanax as needed. CODE STATUS discussed with her and family, she is full code DVT prophylaxis with subcu heparin
[2021-11-13] MEDS ORDERED: ACETAMINOPHEN TAB 325 MG TAB PO PRN (19:12)
[2021-11-13] MEDS: ZOLPIDEM 5 MG TAB PO PRN (20:20)
[2021-11-13] MEDS: HYDROcodone/APAP 5-325MG 1 EACH TAB PO PRN (20:20)
[2021-11-13] MEDS: DONEPEZIL 5 MG TAB PO SCH (20:21)
[2021-11-13] MEDS ORDERED: ALPRAZolam 0.25 MG TAB PO SCH (21:00)
[2021-11-14] MEDS ORDERED: HEPARIN SODIUM,PORCINE/PF 5,000 UNIT/0.5 ML SYRINGE SQ SCH
[2021-11-14] MEDS: HYDROcodone/APAP 5-325MG 1 EACH TAB PO PRN ×2 (05:54→20:33)
[2021-11-14] MEDS ORDERED: NON FORMULARY DRUG (Insulin Lispro [Humalog Kwikpen] 100 UNIT/ML Insuln.Pen) SQ SCH (07:30)
[2021-11-14 07:33] LABS: Glucose,Whole Blood 175 mg/dL (70-110)
[2021-11-14 09:00] LABS: Basophils # (A) 0.04 X 10*3/uL (0.00-0.10); Basophils % (A) 0.8 %; Eosinophils # (A) 0.17 X 10*3/uL (0.04-0.35); Eosinophils % (A) 3.2 %; HCT 34.8 % (37.2-46.3); HGB 11.4 g/dL (12.0-15.0); Immature Grans, Automated 0.2 %; Lymphocytes # (A) 2.03 X 10*3/uL (0.90-5.00); Lymphocytes % (A) 38.2 %; MCH 31.4 pg (27.0-32.0); MCHC 32.8 g/dL (32.0-37.0); MCV 95.9 fL (80.0-97.0); Mean Platelet Volume 10.7 fL (9.5-12.2); Monocytes # (A) 0.42 X 10*3/uL (0.20-1.00); Monocytes % (A) 7.9 %; NRBC Per 100 WBC 0 /100 WBCS (0.0-0.0); Neutrophils # (A) 2.64 X 10*3/uL (1.80-7.70); Neutrophils % (A) 49.7 %; Platelet Count 168 X 10*3/uL (140-440); RBC 3.63 X 10*6/uL (4.10-5.20); RDW 13.4 % (11.5-14.5); WBC 5.31 X 10*3/uL (4.50-10.00)
[2021-11-14] MEDS: INSULIN DETEMIR (LEVEMIR) 100 UNIT/ML SYR SQ SCH (09:06)
[2021-11-14] MEDS: CYANOCOBALAMIN 500 MCG TAB PO SCH (09:06)
[2021-11-14] MEDS: CHOLECALCIFEROL 25 MCG (1000 IU) TABLET PO SCH (09:07)
[2021-11-14] MEDS: ATORVASTATIN 40 MG TAB PO SCH (09:07)
[2021-11-14 09:08] LABS: African American GFR (CKD) 87.6 (60.0-200.0); Albumin 3.9 g/dL (3.8-4.9); Albumin/Globulin Ratio 1.72 (1.60-3.17); BUN/Creat Ratio 16.4 Ratio (12.00-20.00); Blood Urea Nitrogen 12.4 mg/dL (9.0-27.0); Calcium 9.7 mg/dL (8.7-10.3); Carbon Dioxide 27.3 mmol/L (20.0-27.5); Globulin 2.3 g/dL (1.6-3.3); Non-African American GFR(CKD) 75.6 (60.0-200.0); Total Bilirubin 0.5 mg/dL (0.30-1.20); Total Protein 6.2 g/dL (6.2-8.2)
[2021-11-14] MEDS: INSULIN ASPART (NovoLOG) 100 UNIT/ML VIAL SQ SCH ×3 (09:12→17:47)
--- NOTE | 2021-11-14 11:25 | CA ---
Transthoracic Echo Report Name: Haven Mayberry Age: 76 Gender: F : 1945 Exam Date: 11/14/2021 07:47 Exam Location: [facility] Ht (in): 67 Wt (lb): 161 Ordering Physician: Byron Prescott DO Attending/Referring Phys: Programming Intern Ngoc Carlson RDCS Procedure CPT: Indications: Syncope Cardiac Hx: Technical Quality: Good Contrast 1: Total Dose (mL): Contrast 2: Total Dose (mL): MEASUREMENTS (Male / Female) Normal Values 2D ECHO LV Diastolic Diameter PLAX 4.4 cm 4.2 - 5.9 / 3.9 - 5.3 cm LV Systolic Diameter PLAX 2.8 cm IVS Diastolic Thickness 1.0 cm 0.6 - 1.0 / 0.6 - 0.9 cm LVPW Diastolic Thickness 1.1 cm 0.6 - 1.0 / 0.6 - 0.9 cm LV Relative Wall Thickness 0.5 RV Internal Dim ED PLAX 3.4 cm LA Systolic Diameter LX 3.1 cm 3.0 - 4.0 / 2.7 - 3.8 cm LA Volume 53.8 cm??? 18 - 58 / 22 - 52 cm??? M-MODE Aortic Root Diameter MM 3.4 cm MV E Point Septal Separation 0.6 cm AV Cusp Separation MM 2.2 cm DOPPLER AV Peak Velocity 143.1 cm/s AV Peak Gradient 8.2 mmHg MV Area PHT 1.5 cm??? Mitral E Point Velocity 62.1 cm/s Mitral A Point Velocity 79.3 cm/s Mitral E to A Ratio 0.8 MV Deceleration Time 495.4 ms MV E' Velocity 7.4 cm/s Mitral E to MV E' Ratio 8.3 TR Peak Velocity 222.1 cm/s TR Peak Gradient 19.7 mmHg Right Ventricular Systolic Press 24.1 mmHg FINDINGS Left Ventricle Left ventricular ejection fraction is estimated at 55-60 %. Left ventricular cavity size normal. Borderline left ventricular hypertrophy. Mildly increased septal wall thickness. Mildly increased posterior wall thickness. Right Ventricle Mild right ventricular dilatation. Right ventricular systolic pressure within normal limits. A wire was noted in the right ventricle Right Atrium Normal right atrial size. Left Atrium Mildly increased left atrial volume. Mitral Valve Structurally normal mitral valve. No mitral stenosis, regurgitation or prolapse. Mild mitral regurgitation Aortic Valve Trileaflet aortic valve. No aortic valve stenosis or regurgitation. Tricuspid Valve Mild tricuspid regurgitation.structurally normal tricuspid valve. Pulmonic Valve Pulmonic valve not well visualized. Pericardium Normal pericardium. No pericardial effusion. Aorta Normal size aortic root and proximal ascending aorta. CONCLUSIONS 1. Normal size and systolic function 2. Mild mitral and tricuspid regurgitation 3. A wire is noted in the right ventricle Previewed by: Dr. Irina Flores MD (Electronically Signed) Final Date: 14 November 2021 11:24
[2021-11-14 12:19] LABS: Glucose,Whole Blood 113 mg/dL (70-110)
[2021-11-14] MEDS ORDERED: diphenhydrAMINE 25 MG CAP PO STA (14:06)
[2021-11-14] MEDS ORDERED: SODIUM CHLORIDE 0.9% 1,000 ML IV ONE (15:57)
--- NOTE | 2021-11-14 16:07 | P.PN ---
Subjective Progress Note Date: 11/14/21 Hospital course: Patient is a very pleasant 76-year-old female with a past medical history of hypertension, paroxysmal atrial fibrillation status post ablation, sick sinus syndrome status post pacemaker placement, dementia, and insulin-dependent diabetes mellitus. Patient presented to the emergency department on 11/13/21 with a chief complaint of syncopal episode. Patient reports she was in her kitchen and doing dishes in the next thing she knew she awoke on the floor. Patient does not recall how long she was down for, she reports hitting the back of her head on the tile otherwise denies having any injuries or complaints including biting her tongue or experiencing any involuntary loss of bowel or bladder. In the emergency department, patient underwent full evaluation. CT head was completed and negative for acute intercranial process revealing age- related atrophic and chronic small vessel ischemic changes. CT cervical spine also completed showing no evidence for acute fracture or subluxation of the cervical spine. EKG completed revealing normal sinus rhythm with a first-degree AV block with NM interval of 233 ms. No noted T wave or ST abnormality showing no signs of acute ischemia. CBC, coags, and CMP were completed. Labs were unremarkable with the exception of sodium of 133, carbon dioxide 21 and glucose of 213. Urinalysis was negative for blood, protein, or infection. Troponin negative at less than 0.012. Patient was admitted under our services with consultation to cardiology. Troponins trended throughout the night all negative at less than 0.0123 draws. TSH completed elevated at 5.5-0 with a normal free T4. Carotid Dopplers completed revealing no evidence for hemodynamically significant stenosis. Echocardiogram completed revealing normal EF 55-60% with mild mitral and tricuspid regurgitation with a wire noted in right ventricle.. Physical exam: Vital signs reviewed and stable. General: Nontoxic, no distress and appears stated age. Derm: Skin warm and dry, normal coloration for ethnicity. Head: Atraumatic, normocephalic and symmetric. Eyes: EOMs intact, no lid lag, and anicteric sclera Mouth: no lip lesions, mucus membranes moist Cardiovascular: regular rate and rhythm with normal S1S2, systolic murmur, positive posterior tibial pulses bilaterally, and cap refill < 2 seconds. Lungs: Respirations even, regular, and unlabored on room air. Lungs CTA bilaterally, no rhonchi, no rales, no wheezing, and no accessory muscle usage. Abdominal: soft, nontender to palpation, no guarding, no appreciable organomegaly Ext: ROM intact. No gross muscle atrophy, no edema, no contractures Neuro: Speech clear, face symmetrical and CN II-XII grossly intact with no noted focal neuro deficits Psych: Alert and oriented to person, place, time, and situation. Appropriate and pleasant affect. Assessment and Plan of Care: Syncopal episode Orthostatic hypotension History of sick sinus syndrome status post pacemaker placement History of paroxysmal atrial fibrillation status post ablation -Unclear etiology, likely secondary to orthostatic hypotension. -Orthostatic vitals positive for orthostatic hypotension with blood pressure 131/70 and heart rate 67 lying, 104/64 with heart rate 68 sitting, and 93/58 with heart rate of 85 upon standing. -CT head negative -Echocardiogram revealing normal EF 55-60% with mild mitral and tricuspid regurgitation with a wire noted in right ventricle. -Carotid Dopplers negative for hemodynamically significant stenosis. -Cardiology consulted. -Pacemaker interrogation to be completed. -Fall precautions -Telemetry monitoring Insulin-dependent diabetes mellitus -Continue long-acting [id number] Units daily along with glycemic protocol and NovoLog sliding scale. CODE STATUS: Full code DVT prophylaxis: Heparin Discussed with: Patient, patient's niece, and RN Anticipated discharge date: Clinical course to determine Anticipated discharge place: Home A total of 39 minutes was spent on the care of this complex patient more than 50% of the time was spent in counseling and care coordination. I reviewed the documentation as provided by the EMILIA above, who is the original author of this note. I agree with the documented assessment and plan, with the following changes: none Objective - Vital Signs Vital signs: Vital Signs Temp 98.3 F 11/14/21 07:00 Pulse 69 11/14/21 07:00 Resp 18 11/14/21 07:00 BP 137/71 11/14/21 07:00 Pulse Ox 99 11/14/21 07:00 FiO2 Intake & Output 11/13/21 11/14/21 11/14/21 18:59 06:59 18:59 Intake Total 360 59 Balance 360 59 Weight 73.028 kg Intake: Oral 360 59 Other: # Voids 1 - Labs CBC & Chem 7: 11/14/21 05:23 11/14/21 05:23 Labs: Abnormal Lab Results - Last 24 Hours (Table) 11/13/21 11/13/21 11/14/21 Range/Units 10:04 16:22 05:23 RBC 3.63 L (4.10-5.20) X 10*6/uL Hgb 11.4 L (12.0-15.0) g/dL Hct 34.8 L (37.2-46.3) % Sodium 133 L (137-145) mmol/L Carbon Dioxide 21 L (22-30) mmol/L Anion Gap (10.00-18.00) mmol/L Glucose 213 H (74-99) mg/dL POC Glucose (mg/dL) 121 H (70-110) mg/dL TSH (0.350-5.500) uIU/mL 11/14/21 11/14/21 Range/Units 05:23 07:31 RBC (4.10-5.20) X 10*6/uL Hgb (12.0-15.0) g/dL Hct (37.2-46.3) % Sodium (137-145) mmol/L Carbon Dioxide (22-30) mmol/L Anion Gap 6.00 L (10.00-18.00) mmol/L Glucose 168 H (74-99) mg/dL POC Glucose (mg/dL) 175 H (70-110) mg/dL TSH 5.520 H (0.350-5.500) uIU/mL
[2021-11-14] MEDS: HEPARIN SODIUM,PORCINE/PF 5,000 UNIT/0.5 ML SYRINGE SQ SCH ×2 (17:05→20:35)
[2021-11-14 17:25] LABS: Glucose,Whole Blood 122 mg/dL (70-110)
[2021-11-14] MEDS ORDERED: diphenhydrAMINE 25 MG CAP PO PRN (18:48)
[2021-11-14] MEDS: ZOLPIDEM 5 MG TAB PO PRN (20:33)
[2021-11-14] MEDS: DONEPEZIL 5 MG TAB PO SCH (20:35)
[2021-11-14 21:43] LABS: Glucose,Whole Blood 112 mg/dL (70-110)
[2021-11-15 04:14] VITALS: RESP 18
[2021-11-15] MEDS: HYDROcodone/APAP 5-325MG 1 EACH TAB PO PRN (05:56)
[2021-11-15 07:09] LABS: Glucose,Whole Blood 160 mg/dL (70-110)
[2021-11-15 07:47] VITALS: TEMP 98.4
--- NOTE | 2021-11-15 08:42 | P.CRDCN ---
History of Present Illness Consult date: 11/15/21 History of present illness: History of Present Illness: The patient is a 76-year-old female with a known history of hypertension, hyperlipidemia, paroxysmal atrial fibrillation and permanent pacemaker implantation as well as a history of early dementia who presented with a syncopal episode. She has been followed by Dr. Viera in the office, has underwent permanent pacemaker implantation 3 years ago in [place] who presented with a syncopal episode. She was standing in the kitchen when according to her she fell to the ground. It was brief and not associated with any tonic clonic activity, loss of bladder control, chest discomfort or dyspnea. She has occasional palpitations but did not feel any yesterday. She has no history of PND, orthopnea or peripheral edema. She is reasonably active physically with gardening without any symptoms. She has no history of documented obstructive coronary artery disease. She has been in sinus mechanism since admission with no evidence of pacemaker malfunction. Her troponin have been negative. Medications: Insulin, ramipril 2-1/2 mg daily, Crestor 20 mg daily, Pradaxa 150 mg twice a day. Review of Systems: Respiratory: No history of asthma, bronchitis or recent cough. GI: No nausea or vomiting . No history of peptic ulcer disease. No recent GI bleed. : No hematuria or dysuria. Nervous System: No stroke or seizure. Physical Examination: 76-year-old female, alert and oriented, having difficulty remembering some questions,Blood pressure 122/60, Heart rate 60 Head: Normocephalic. Eyes: Sclerae nonicteric. Neck: Good carotid upstroke, no bruit, no jugular venous distention. Lungs: Clear to auscultation. Heart: Regular rate and rhythm, S1-S2, no S3, no rub. Systolic ejection murmur at the base. Abdomen: Soft nontender, positive bowel sounds no organomegaly. Extremities: No edema, intact distal pulses. Labs: BUN 12, creatinine 0.8, potassium 5, troponin less than 0.012, hemoglobin 11.4. Carotid duplex scan showed no evidence of high-grade stenosis. Echocardiogram with normal left ventricle size and systolic function was mild mitral and tricuspid regurgitation. Chest x-ray with no infiltrate. EKG: Sinus mechanism, first-degree AV block, left axis deviation, poor R-wave progression. Pacemaker interrogation shows no evidence of ventricle tachycardia. Impression: 1. Syncope, unclear etiology, no evidence of malignant arrhythmia. Possible orthostatic hypotension 2. Status post permanent pacemaker implantation 3. History of diabetes 4. History of hyperlipidemia 5. History of paroxysmal atrial fibrillation, maintaining sinus mechanism Plan: 1. Resume anticoagulation 2. Increase physical activity 3. Obtain orthostatic blood pressure 4. Is stable probable discharge home soon and follow-up with Dr. Viera 5. Thank you for this consult we will follow with you. Past Medical History Past Medical History: Atrial Fibrillation, Diabetes Mellitus, Hyperlipidemia, Hypertension History of Any Multi-Drug Resistant Organisms: None Reported Past Surgical History: Appendectomy, Cardiac Ablation, Cholecystectomy, Hysterectomy, Joint Replacement, Orthopedic Surgery, Pacemaker Additional Past Surgical History / Comment(s): lt knee replacement Past Anesthesia/Blood Transfusion Reactions: Family History of Problems w/ Anesthesia, Motion Sickness Additional Past Anesthesia/Blood Transfusion Reaction / Comment(s): pt states siblings are "allergic" to anesthesia experience hives and breathing difficulties Type of Cardiac Device: Permanent Pacemaker Device Placement Date:: 2013 Past Psychological History: Depression Smoking Status: Never smoker Past Alcohol Use History: Occasional Past Drug Use History: None Reported - Past Family History Brother(s) Family Medical History: Cancer Additional Family Medical History / Comment(s): colorectal,multiple myeloma Sister(s) Family Medical History: Cancer, CVA/TIA Additional Family Medical History / Comment(s): breast,colorectal cancer Son(s) Family Medical History: Cancer, Diabetes Mellitus (States majority of her family has diabetes) Additional Family Medical History / Comment(s): leukemia Medications and Allergies Home Medications Medication Instructions Recorded Confirmed Type ALPRAZolam [Xanax] 0.25 mg PO BID 11/13/21 11/13/21 History Cholecalciferol [Vitamin D3 (25 25 mcg PO DAILY 11/13/21 11/13/21 History Mcg = 1000 Iu)] Cyanocobalamin [Vitamin B-12] 1,000 mcg PO DAILY 11/13/21 11/13/21 History Donepezil [Aricept] 5 mg PO HS 11/13/21 11/13/21 History Ibandronate Sodium [Boniva] 150 mg PO QMONTHLY 11/13/21 11/13/21 History Insulin Glargine,Hum.rec.anlog 10 units SQ HS 11/13/21 11/13/21 History [Lantus Solostar Pen] Insulin Glargine,Hum.rec.anlog 30 units SQ DAILY 11/13/21 11/13/21 History [Lantus Solostar Pen] Insulin Lispro [humaLOG Kwikpen] See Protocol SQ AC-TID 11/13/21 11/13/21 History Rosuvastatin [Crestor] 20 mg PO DAILY 11/13/21 11/13/21 History Allergies Allergy/AdvReac Type Severity Reaction Status Date / Time ofloxacin [From Floxin] Allergy Unknown Verified 11/13/21 14:11 Physical Exam Vitals: Vital Signs Temp Pulse Pulse Resp BP Pulse Ox 11/15/21 07:00 98.4 F 64 18 122/63 95 11/15/21 02:28 98.1 F 72 18 144/70 95 11/14/21 21:15 98.2 F 75 17 146/88 97 11/14/21 18:17 75 133/62 11/14/21 15:00 98.1 F 64 17 125/66 97 Intake and Output 11/14/21 11/15/21 11/15/21 22:59 06:59 14:59 Other: # Voids 1 1 Results 11/14/21 05:23 11/14/21 05:23 Cardiac Enzymes 11/14/21 Range/Units 05:23 AST 22 (13-35) U/L CBC 11/14/21 Range/Units 05:23 WBC 5.31 (4.50-10.00) X 10*3/uL RBC 3.63 L (4.10-5.20) X 10*6/uL Hgb 11.4 L (12.0-15.0) g/dL Hct 34.8 L (37.2-46.3) % Plt Count 168 (140-440) X 10*3/uL Comprehensive Metabolic Panel 11/14/21 Range/Units 05:23 Sodium 138 (135-145) mmol/L Potassium 5.0 (3.5-5.5) mmol/L Chloride 105 (96-109) mmol/L Carbon Dioxide 27.3 (20.0-27.5) mmol/L BUN 12.4 (9.0-27.0) mg/dL Creatinine 0.8 (0.6-1.5) mg/dL Glucose 168 H (70-110) mg/dL Calcium 9.7 (8.7-10.3) mg/dL AST 22 (13-35) U/L ALT 13 (8-44) U/L Alkaline Phosphatase 51 (41-126) U/L Total Protein 6.2 (6.2-8.2) g/dL Albumin 3.9 (3.8-4.9) g/dL Current Medications Generic Name Dose Route Start Last Admin Trade Name Freq PRN Reason Stop Dose Admin Acetaminophen 650 mg 11/13/21 19:12 Acetaminophen Tab 325 Mg Tab PO Q6HR PRN Mild Pain or Fever > 100.5 Hydrocodone Bitart/Acetaminophen 1 each 11/13/21 18:15 11/15/21 05:56 Hydrocodone/Apap 5-325mg 1 Each Tab PO 1 each Q6HR PRN Administration Pain Alprazolam 0.25 mg 11/13/21 18:36 11/15/21 05:56 Alprazolam 0.25 Mg Tab PO 0.25 mg BID PRN Administration Anxiety Atorvastatin Calcium 40 mg 11/14/21 09:00 11/14/21 09:07 Atorvastatin 40 Mg Tab PO 40 mg DAILY REGGIE Administration Cholecalciferol 25 mcg 11/14/21 09:00 11/14/21 09:07 Cholecalciferol 25 Mcg (1000 Iu) Tablet PO 25 mcg DAILY REGGIE Administration Cyanocobalamin 1,000 mcg 11/14/21 09:00 11/14/21 09:06 Cyanocobalamin 500 Mcg Tab PO 1,000 mcg DAILY REGGIE Administration Diphenhydramine HCl 25 mg 11/14/21 18:48 Diphenhydramine 25 Mg Cap PO QID PRN Mild Itching Donepezil HCl 5 mg 11/13/21 21:00 11/14/21 20:35 Donepezil 5 Mg Tab PO 5 mg HS REGGIE Administration Heparin Sodium (Porcine) 5,000 unit 11/14/21 16:00 11/14/21 20:35 Heparin Sodium,Porcine/Pf 5,000 Unit/0.5 Ml Syringe SQ 5,000 unit Q8HR REGGIE Administration Insulin Aspart 0 unit 11/14/21 08:15 11/14/21 17:47 Insulin Aspart (Novolog) 100 Unit/Ml Vial SQ Not Given AC-TID [facility] Protocol Insulin Detemir 20 unit 11/14/21 09:00 11/14/21 09:06 Insulin Detemir (Levemir) 100 Unit/Ml Syr SQ 20 unit DAILY REGGIE Administration Naloxone HCl 0.2 mg 11/13/21 12:53 Naloxone 0.4 Mg/Ml 1 Ml Vial IV Q2M PRN Opioid Reversal Zolpidem Tartrate 2.5 mg 11/13/21 17:55 11/14/21 20:33 Zolpidem 5 Mg Tab PO 2.5 mg HS PRN Administration Insomnia Intake and Output 11/14/21 11/15/21 11/15/21 22:59 06:59 14:59 Other: # Voids 1 1 11/14/21 05:23 11/14/21 05:23
[2021-11-15 08:59] VITALS: BP 148/70; PULSE 60
[2021-11-15] MEDS ORDERED: DABIGATRAN 150 MG CAP PO SCH (09:00)
[2021-11-15] MEDS: CHOLECALCIFEROL 25 MCG (1000 IU) TABLET PO SCH (09:39)
[2021-11-15] MEDS: ATORVASTATIN 40 MG TAB PO SCH (09:39)
[2021-11-15] MEDS: INSULIN ASPART (NovoLOG) 100 UNIT/ML VIAL SQ SCH ×2 (09:39→12:55)
[2021-11-15] MEDS: CYANOCOBALAMIN 500 MCG TAB PO SCH (09:39)
[2021-11-15] MEDS: INSULIN DETEMIR (LEVEMIR) 100 UNIT/ML SYR SQ SCH (09:39)
[2021-11-15] MEDS: HEPARIN SODIUM,PORCINE/PF 5,000 UNIT/0.5 ML SYRINGE SQ SCH (09:47)
[2021-11-15 11:35] LABS: Glucose,Whole Blood 121 mg/dL (70-110)
--- NOTE | 2021-11-15 12:56 | P.DS ---
Providers Date of admission: 11/13/21 12:54 Expected date of discharge: 11/15/21 Attending physician: Alejandra Nielsen DO Consults: 11/14/21 14:06 Consult Physician Routine Consulting Provider: Irina Flores Consult Reason/Comments: syncope, pacemaker Do you want consulting provider notified?: Yes Primary care physician: Odessa Lechuga Hospital Course: Discharge Diagnosis: Syncopal episode Orthostatic hypotension History of sick sinus syndrome status post pacemaker placement History of paroxysmal atrial fibrillation status post ablation Insulin-dependent diabetes mellitus Hospital Course: Patient is a very pleasant 76-year-old female with a past medical history of hypertension, paroxysmal atrial fibrillation status post ablation, sick sinus syndrome status post pacemaker placement, dementia, and insulin-dependent diabetes mellitus. Patient presented to the emergency department on 11/13/21 with a chief complaint of syncopal episode. Patient reports she was in her kitchen and doing dishes in the next thing she knew she awoke on the floor. Patient does not recall how long she was down for, she reports hitting the back of her head on the tile otherwise denies having any injuries or complaints including biting her tongue or experiencing any involuntary loss of bowel or b ladder. In the emergency department, patient underwent full evaluation. CT head was completed and negative for acute intercranial process revealing age- related atrophic and chronic small vessel ischemic changes. CT cervical spine also completed showing no evidence for acute fracture or subluxation of the cervical spine. EKG completed revealing normal sinus rhythm with a first-degree AV block with IN interval of 233 ms. No noted T wave or ST abnormality showing no signs of acute ischemia. CBC, coags, and CMP were completed. Labs were unremarkable with the exception of sodium of 133, carbon dioxide 21 and glucose of 213. Urinalysis was negative for blood, protein, or infection. Troponin negative at less than 0.012. Patient was admitted under our services with consultation to cardiology. Troponins trended throughout the night all negative at less than 0.0123 draws. TSH completed elevated at 5.5-0 with a normal free T4. Carotid Dopplers completed revealing no evidence for hemodynamically significant stenosis. Echocardiogram completed revealing normal EF 55-60% with mild mitral and tricuspid regurgitation with a wire noted in right ventricle.. Patient was positive for orthostatic hypotension. She was instructed on importance of keeping herself hydrated, eating more frequent meals, walking with a cane and/walker at all times and to most importantly change positions slowly. Patient had no further episodes of dizziness since arrival to hospital and continued to deny having any other complaints at this time. Patient is medically stable for discharge at this time and to follow up outpatient with PCP in 1-2 days and cardiology in 1 week. Physical exam: Vital signs reviewed and stable. General: Nontoxic, no distress and appears stated age. Derm: Skin warm and dry, normal coloration for ethnicity. Head: Atraumatic, normocephalic and symmetric. Eyes: EOMs intact, no lid lag, and anicteric sclera Mouth: no lip lesions, mucus membranes moist Cardiovascular: regular rate and rhythm with normal S1S2, systolic murmur, positive posterior tibial pulses bilaterally, and cap refill < 2 seconds. Lungs: Respirations even, regular, and unlabored on room air. Lungs CTA bilaterally, no rhonchi, no rales, no wheezing, and no accessory muscle usage. Abdominal: soft, nontender to palpation, no guarding, no appreciable organomegaly Ext: ROM intact. No gross muscle atrophy, no edema, no contractures Neuro: Speech clear, face symmetrical and CN II-XII grossly intact with no noted focal neuro deficits Psych: Alert and oriented to person, place, time, and situation. Appropriate and pleasant affect. A total of 33 minutes of time were spent preparing this complex discharge summary. Pt was discharged on 11/15/21 at 12:54 PM I reviewed the documentation as provided by the EMILIA above, who is the original author of this note. I agree with the documented assessment and plan, with the following changes: none Patient Condition at Discharge: Stable Plan - Discharge Summary Discharge Rx Participant: No New Discharge Prescriptions: New Mupirocin 2% Oint [Bactroban 2% Oint] 1 applic TOPICAL TID 10 Days #22 gm Continue Insulin Glargine,Hum.rec.anlog [Lantus Solostar Pen] 10 units SQ HS Insulin Glargine,Hum.rec.anlog [Lantus Solostar Pen] 30 units SQ DAILY Rosuvastatin [Crestor] 20 mg PO DAILY Ibandronate Sodium [Boniva] 150 mg PO QMONTHLY Cyanocobalamin [Vitamin B-12] 1,000 mcg PO DAILY Insulin Lispro [humaLOG Kwikpen] See Protocol SQ AC-TID ALPRAZolam [Xanax] 0.25 mg PO BID Donepezil [Aricept] 5 mg PO HS Cholecalciferol [Vitamin D3 (25 Mcg = 1000 Iu)] 25 mcg PO DAILY Dabigatran [Pradaxa] 150 mg PO BID Discharge Medication List ALPRAZolam [Xanax] 0.25 mg PO BID 11/13/21 [History] Cholecalciferol [Vitamin D3 (25 Mcg = 1000 Iu)] 25 mcg PO DAILY 11/13/21 [History] Cyanocobalamin [Vitamin B-12] 1,000 mcg PO DAILY 11/13/21 [History] Donepezil [Aricept] 5 mg PO HS 11/13/21 [History] Ibandronate Sodium [Boniva] 150 mg PO QMONTHLY 11/13/21 [History] Insulin Glargine,Hum.rec.anlog [Lantus Solostar Pen] 10 units SQ HS 11/13/21 [History] Insulin Glargine,Hum.rec.anlog [Lantus Solostar Pen] 30 units SQ DAILY 11/13/21 [History] Insulin Lispro [humaLOG Kwikpen] See Protocol SQ AC-TID 11/13/21 [History] Rosuvastatin [Crestor] 20 mg PO DAILY 11/13/21 [History] Dabigatran [Pradaxa] 150 mg PO BID 11/15/21 [History] Mupirocin 2% Oint [Bactroban 2% Oint] 1 applic TOPICAL TID 10 Days #22 gm 11/15/21 [Rx] Follow up Appointment(s)/Referral(s): Irina Flores MD [STAFF PHYSICIAN] - 11/22/21 11:45 am Odessa Lechuga MD [Primary Care Provider] - 1-2 days Patient Instructions/Handouts: Dehydration (DC), Syncope (DC) Activity/Diet/Wound Care/Special Instructions: Activity: As tolerated. Take breaks as needed. You have orthostatic hypotension. It is important to keep yourself hydrated, eat smaller more frequent meals, walking with a cane or walker at all times, and most importantly as we discussed you will need to change positions slowly. From lying to sitting it is recommended U weight 1-2 minutes before standing and upon standing weight 1-2 minutes before walking. This is the same with activities if you are bent over doing dishes or putting on your shoe, it is important to wait a 1-2 minutes upon standing up straight before taking a step to prevent future episodes of dizziness and near syncopal or syncopal episodes. Diet: Heart healthy and carb consistent diet. Avoid salts, or foods with hidden salts such as canned or boxed foods and frozen dinners. Extra salt makes your heart work harder and traps the fluid in your body for longer. Special Instructions: Take all of your medications as directed and remember to keep all of your doctor's appointments and follow-up as needed. Thank you for allowing us to participate in your care, it was truly a pleasure having you for our patient!!! Discharge Disposition: HOME SELF-CARE
[2021-11-25] MEDS ORDERED: NON FORMULARY DRUG (Ibandronate Sodium [Boniva] 150 MG Tablet) PO SCH (09:00)
== END 2021-11-15 14:17 | disposition home or self-care (01) ==
LOC: EC 09:32 → 6NMEDSUR 12:54
PROVIDERS: ADMIT Internal Medicine; ATTEND Internal Medicine
DX: I95.1 Orthostatic hypotension (principal); I48.0 Paroxysmal atrial fibrillation; E11.9 Type 2 diabetes mellitus without complications; F03.90 Unspecified dementia, unspecified severity, without behavioral disturbance, psychotic disturbance, mood disturbance, and anxiety; E78.5 Hyperlipidemia, unspecified; F41.9 Anxiety disorder, unspecified; R00.2 Palpitations; I10 Essential (primary) hypertension; I49.5 Sick sinus syndrome; F32.A Depression, unspecified; I44.0 Atrioventricular block, first degree; I08.1 Rheumatic disorders of both mitral and tricuspid valves; E66.9 Obesity, unspecified; Z68.25 Body mass index [BMI] 25.0-25.9, adult; W19.XXXA Unspecified fall, initial encounter; Y92.000 Kitchen of unspecified non-institutional (private) residence as the place of occurrence of the external cause; Z79.899 Other long term (current) drug therapy; Z79.4 Long term (current) use of insulin; Z79.01 Long term (current) use of anticoagulants; Z79.890 Hormone replacement therapy; Z88.1 Allergy status to other antibiotic agents; Z90.49 Acquired absence of other specified parts of digestive tract; Z90.710 Acquired absence of both cervix and uterus; Z95.0 Presence of cardiac pacemaker; Z96.652 Presence of left artificial knee joint; Z71.9 Counseling, unspecified; Z80.7 Family history of other malignant neoplasms of lymphoid, hematopoietic and related tissues; Z80.0 Family history of malignant neoplasm of digestive organs; Z80.6 Family history of leukemia; Z82.3 Family history of stroke; Z80.3 Family history of malignant neoplasm of breast; Z84.89 Family history of other specified conditions; Z83.3 Family history of diabetes mellitus
CPT/HCPCS: 96372; 99285; 36415; 93005; 93306; 84439; 80053 ×2; 84443; 84484; 85025 ×2; 85610; 85730; 81003; 71046; 93880; 72125; 70450; G0378 ×3; J1644

== ENCOUNTER 2021-11-18 15:45 | Emergency (ER) | payer MEDICARE ==
[2021-11-18 15:56] VITALS: TEMP 98.2
[2021-11-18] MEDS ORDERED: SODIUM CHLORIDE 0.9% 500 ML 500 ML IV ONE (16:27)
--- NOTE | 2021-11-18 17:04 | CT ---
EXAMINATION TYPE: CT brain wo con DATE OF EXAM: 11/18/2021 COMPARISON: 11/13/2021 HISTORY: Altered mental status. CT DLP: 1087.4 mGycm Automated exposure control for dose reduction was used. There is cerebral cortical atrophy. There is no mass effect or midline shift. No sign of intracranial hemorrhage. Calvarium is intact. There is normal aeration of the mastoid sinuses. There is hypodensi ty in the periventricular white matter. IMPRESSION: Cerebral atrophy and chronic small vessel ischemia. No change.
[2021-11-18 17:06] LABS: Basophils % (A) 1 %; Eosinophils # (A) 0.2 k/uL (0-0.7); Eosinophils % (A) 4 %; HCT 35.6 % (34.0-46.0); HGB 11.6 gm/dL (11.4-16.0); Lymphocytes # (A) 1.9 k/uL (1.0-4.8); Lymphocytes % (A) 35 %; MCH 31.7 pg (25.0-35.0); MCHC 32.6 g/dL (31.0-37.0); MCV 97.3 fL (80.0-100.0); Mean Platelet Volume 8.7; Monocytes # (A) 0.3 k/uL (0-1.0); Monocytes % (A) 6 %; Neutrophils # (A) 2.8 k/uL (1.3-7.7); Neutrophils % (A) 52 %; Platelet Count 175 k/uL (150-450); RBC 3.65 m/uL (3.80-5.40); RDW 13.6 % (11.5-15.5); WBC 5.4 k/uL (3.8-10.6)
--- NOTE | 2021-11-18 17:12 | XR ---
EXAMINATION TYPE: XR chest 2V DATE OF EXAM: 11/18/2021 COMPARISON: 11/13/2021 HISTORY: Syncope TECHNIQUE: 2 views FINDINGS: Heart is normal. Lungs are clear of infiltrate. No heart failure. There are no hilar masses . Bony thorax is intact. There is right axillary pacemaker. IMPRESSION: No active cardiopulmonary disease. Normal heart. No change.
[2021-11-18 17:22] LABS: ALT 16 U/L (4-34); AST 31 U/L (14-36); African American GFR (CKD) >90 (>60 ml/min/1.73 sqM); Albumin 3.7 g/dL (3.5-5.0); Alkaline Phosphatase 44 U/L (38-126); Anion Gap 7 mmol/L; Blood Urea Nitrogen 22 mg/dL (7-17); Calcium 9.9 mg/dL (8.4-10.2); Carbon Dioxide 29 mmol/L (22-30); Chloride 103 mmol/L (98-107); Glucose 175 mg/dL (74-99); Non-African American GFR(CKD) 82 (>60 ml/min/1.73 sqM); Potassium 3.7 mmol/L (3.5-5.1); Sodium 139 mmol/L (137-145); Total Bilirubin 0.5 mg/dL (0.2-1.3); Total Protein 6.2 g/dL (6.3-8.2)
[2021-11-18 17:24] LABS: Partial Thromboplastin Time 23.7 sec (22.0-30.0); Prothrombin Time 11.1 sec (9.0-12.0)
[2021-11-18 17:32] LABS: Amphetamine Screen,Urine Not Detected (NotDetected); Barbiturate Screen,Urine Not Detected (NotDetected); Benzodiazepines Screen,Urine Detected (NotDetected); Cocaine Screen,Urine Not Detected (NotDetected); Methadone Screen, Urine Not Detected (NotDetected); Opiate Screen,Urine Not Detected (NotDetected); Oxycodone Screen, Urine Not Detected (NotDetected); Phencyclidine Screen,Urine Not Detected (NotDetected); Tricyclic Antidepressant,Urine Not Detected (NotDetected); Urn Cannabinoid Scrn Not Detected (NotDetected)
[2021-11-18 18:15] LABS: Amorphous Sediment,Urine Rare /hpf; Appearance,Urine Cloudy (Clear); Bilirubin,Urine Negative (Negative); Blood,Urine Negative (Negative); Color,Urine Yellow; Glucose,Urine (UA) Negative (Negative); Ketones,Urine Negative (Negative); Leukocyte Esterase,Urine Negative (Negative); Mucus,Urine Rare /hpf; Nitrite,Urine Negative (Negative); Protein,Urine Trace (Negative); RBC,Urine <1 /hpf (0-5); Specific Gravity,Urine 1.019 (1.001-1.035); Squamous Epithelial Cell,Urine 1 /hpf (0-4); Urobilinogen,Urine <2.0 mg/dL (<2.0); WBC,Urine 1 /hpf (0-5)
--- NOTE | 2021-11-18 18:36 | ED ---
General Adult HPI - General Chief complaint: Altered Mental Status Stated complaint: altered mental status Time Seen by Provider: 11/18/21 16:13 Source: patient, family, EMS, RN notes reviewed, old records reviewed Mode of arrival: EMS Limitations: altered mental status - History of Present Illness Initial comments: 68-year-old female with history of dementia presents for evaluation of upper ventilation and a moment of unresponsiveness per patient was at her primary care office when this occurred. According to family she was minimally responsive and was not following commands well. She had been quite anxious and hyperventilating prior to this. There was no associated chest pain or dyspnea. No reported fever. No pain complaints. Patient does have anxiety. - Related Data Home Medications Medication Instructions Recorded Confirmed ALPRAZolam [Xanax] 0.25 mg PO BID 11/13/21 11/13/21 Cholecalciferol [Vitamin D3 (25 25 mcg PO DAILY 11/13/21 11/13/21 Mcg = 1000 Iu)] Cyanocobalamin [Vitamin B-12] 1,000 mcg PO DAILY 11/13/21 11/13/21 Donepezil [Aricept] 5 mg PO HS 11/13/21 11/13/21 Ibandronate Sodium [Boniva] 150 mg PO QMONTHLY 11/13/21 11/13/21 Insulin Glargine,Hum.rec.anlog 10 units SQ HS 11/13/21 11/13/21 [Lantus Solostar Pen] Insulin Glargine,Hum.rec.anlog 30 units SQ DAILY 11/13/21 11/13/21 [Lantus Solostar Pen] Insulin Lispro [humaLOG Kwikpen] See Protocol SQ AC-TID 11/13/21 11/13/21 Rosuvastatin [Crestor] 20 mg PO DAILY 11/13/21 11/13/21 Dabigatran [Pradaxa] 150 mg PO BID 11/15/21 11/15/21 Previous Rx's Medication Instructions Recorded Mupirocin 2% Oint [Bactroban 2% 1 applic TOPICAL TID 10 Days #22 gm 11/15/21 Oint] Allergies Allergy/AdvReac Type Severity Reaction Status Date / Time adhesive Allergy Rash/Hives Verified 11/18/21 15:56 ofloxacin [From Floxin] Allergy Unknown Verified 11/18/21 15:56 Review of Systems ROS Statement: Those systems with pertinent positive or pertinent negative responses have been documented in the HPI. ROS Other: All systems not noted in ROS Statement are negative. Past Medical History Past Medical History: Atrial Fibrillation, Diabetes Mellitus, Hyperlipidemia, Hypertension History of Any Multi-Drug Resistant Organisms: None Reported Past Surgical History: Appendectomy, Cardiac Ablation, Cholecystectomy, Hysterectomy, Joint Replacement, Orthopedic Surgery, Pacemaker Additional Past Surgical History / Comment(s): lt knee replacement Past Anesthesia/Blood Transfusion Reactions: Family History of Problems w/ Anesthesia, Motion Sickness Additional Past Anesthesia/Blood Transfusion Reaction / Comment(s): pt states siblings are "allergic" to anesthesia experience hives and breathing difficulties Type of Cardiac Device: Permanent Pacemaker Device Placement Date:: 2013 Past Psychological History: Depression Smoking Status: Never smoker Past Alcohol Use History: Occasional Past Drug Use History: None Reported - Past Family History Brother(s) Family Medical History: Cancer Additional Family Medical History / Comment(s): colorectal,multiple myeloma Sister(s) Family Medical History: Cancer, CVA/TIA Additional Family Medical History / Comment(s): breast,colorectal cancer Son(s) Family Medical History: Cancer, Diabetes Mellitus (States majority of her family has diabetes) Additional Family Medical History / Comment(s): leukemia General Exam Limitations: altered mental status Course Vital Signs 11/18/21 15:53 Temperature 98.2 F Pulse Rate 72 Respiratory 20 Rate Blood Pressure 193/80 O2 Sat by Pulse 100 Oximetry - Reevaluation(s) Reevaluation #1: 11/18/21 18:33 pt reevaluated, resting comfortably, eager for discharge. Family agreeable. Medical Decision Making - Medical Decision Making 68-year-old female, episode of confusion, altered mental status resolved. Patient hypertensive upon arrival this does improve the emergency department without treatment. Her family admits she has not been eating well. She herself has no complaints currently. Stable CBC, CMP. I did not perform an EKG on this patient because she has a severe skin reaction to adhesive. However she is in regular rate and rhythm on auscultation without complaints of chest pain or dyspnea. She did receive CT of the brain and chest x-ray which were unremarkabl e. Urinalysis negative for infection. Ultimately the patient is eager for discharge and family is agreeable. - Lab Data Result diagrams: 11/18/21 16:45 11/18/21 16:45 Lab Results 11/18/21 11/18/21 11/18/21 Range/Units 16:45 16:45 16:45 WBC 5.4 (3.8-10.6) k/uL RBC 3.65 L (3.80-5.40) m/uL Hgb 11.6 (11.4-16.0) gm/dL Hct 35.6 (34.0-46.0) % MCV 97.3 (80.0-100.0) fL MCH 31.7 (25.0-35.0) pg MCHC 32.6 (31.0-37.0) g/dL RDW 13.6 (11.5-15.5) % Plt Count 175 (150-450) k/uL MPV 8.7 Neutrophils % 52 % Lymphocytes % 35 % Monocytes % 6 % Eosinophils % 4 % Basophils % 1 % Neutrophils # 2.8 (1.3-7.7) k/uL Lymphocytes # 1.9 (1.0-4.8) k/uL Monocytes # 0.3 (0-1.0) k/uL Eosinophils # 0.2 (0-0.7) k/uL Basophils # 0.0 (0-0.2) k/uL PT 11.1 (9.0-12.0) sec INR 1.0 (<1.2) APTT 23.7 (22.0-30.0) sec Sodium (137-145) mmol/L Potassium (3.5-5.1) mmol/L Chloride (98-107) mmol/L Carbon Dioxide (22-30) mmol/L Anion Gap mmol/L BUN (7-17) mg/dL Creatinine (0.52-1.04) mg/dL Est GFR (CKD-EPI)AfAm (>60 ml/min/1.73 sqM) Est GFR (CKD-EPI)NonAf (>60 ml/min/1.73 sqM) Glucose (74-99) mg/dL Calcium (8.4-10.2) mg/dL Total Bilirubin (0.2-1.3) mg/dL AST (14-36) U/L ALT (4-34) U/L Alkaline Phosphatase (38-126) U/L Total Protein (6.3-8.2) g/dL Albumin (3.5-5.0) g/dL Urine Color Urine Appearance (Clear) Urine pH (5.0-8.0) Ur Specific [place] (1.001-1.035) Urine Protein (Negative) Urine Glucose (UA) (Negative) Urine Ketones (Negative) Urine Blood (Negative) Urine Nitrite (Negative) Urine Bilirubin (Negative) Urine Urobilinogen (<2.0) mg/dL Ur Leukocyte Esterase (Negative) Urine RBC (0-5) /hpf Urine WBC (0-5) /hpf Ur Squamous Epith Cells (0-4) /hpf Amorphous Sediment (None) /hpf Urine Mucus (None) /hpf Urine Opiates Screen Not Detected (NotDetected) Ur Oxycodone Screen Not Detected (NotDetected) Urine Methadone Screen Not Detected (NotDetected) Ur Propoxyphene Screen Not Detected (NotDetected) Ur Barbiturates Screen Not Detected (NotDetected) U Tricyclic Antidepress Not Detected (NotDetected) Ur Phencyclidine Scrn Not Detected (NotDetected) Ur Amphetamines Screen Not Detected (NotDetected) U Methamphetamines Scrn Not Detected (NotDetected) U Benzodiazepines Scrn Detected H (NotDetected) Urine Cocaine Screen Not Detected (NotDetected) U Marijuana (THC) Screen Not Detected (NotDetected) 11/18/21 11/18/21 Range/Units 16:45 16:45 WBC (3.8-10.6) k/uL RBC (3.80-5.40) m/uL Hgb (11.4-16.0) gm/dL Hct (34.0-46.0) % MCV (80.0-100.0) fL MCH (25.0-35.0) pg MCHC (31.0-37.0) g/dL RDW (11.5-15.5) % Plt Count (150-450) k/uL MPV Neutrophils % % Lymphocytes % % Monocytes % % Eosinophils % % Basophils % % Neutrophils # (1.3-7.7) k/uL Lymphocytes # (1.0-4.8) k/uL Monocytes # (0-1.0) k/uL Eosinophils # (0-0.7) k/uL Basophils # (0-0.2) k/uL PT (9.0-12.0) sec INR (<1.2) APTT (22.0-30.0) sec Sodium 139 (137-145) mmol/L Potassium 3.7 (3.5-5.1) mmol/L Chloride 103 (98-107) mmol/L Carbon Dioxide 29 (22-30) mmol/L Anion Gap 7 mmol/L BUN 22 H (7-17) mg/dL Creatinine 0.71 (0.52-1.04) mg/dL Est GFR (CKD-EPI)AfAm >90 (>60 ml/min/1.73 sqM) Est GFR (CKD-EPI)NonAf 82 (>60 ml/min/1.73 sqM) Glucose 175 H (74-99) mg/dL Calcium 9.9 (8.4-10.2) mg/dL Total Bilirubin 0.5 (0.2-1.3) mg/dL AST 31 (14-36) U/L ALT 16 (4-34) U/L Alkaline Phosphatase 44 (38-126) U/L Total Protein 6.2 L (6.3-8.2) g/dL Albumin 3.7 (3.5-5.0) g/dL Urine Color Yellow Urine Appearance Cloudy H (Clear) Urine pH 8.0 (5.0-8.0) Ur Specific [place] 1.019 (1.001-1.035) Urine Protein Trace H (Negative) Urine Glucose (UA) Negative (Negative) Urine Ketones Negative (Negative) Urine Blood Negative (Negative) Urine Nitrite Negative (Negative) Urine Bilirubin Negative (Negative) Urine Urobilinogen <2.0 (<2.0) mg/dL Ur Leukocyte Esterase Negative (Negative) Urine RBC <1 (0-5) /hpf Urine WBC 1 (0-5) /hpf Ur Squamous Epith Cells 1 (0-4) /hpf Amorphous Sediment Rare H (None) /hpf Urine Mucus Rare H (None) /hpf Urine Opiates Screen (NotDetected) Ur Oxycodone Screen (NotDetected) Urine Methadone Screen (NotDetected) Ur Propoxyphene Screen (NotDetected) Ur Barbiturates Screen (NotDetected) U Tricyclic Antidepress (NotDetected) Ur Phencyclidine Scrn (NotDetected) Ur Amphetamines Screen (NotDetected) U Methamphetamines Scrn (NotDetected) U Benzodiazepines Scrn (NotDetected) Urine Cocaine Screen (NotDetected) U Marijuana (THC) Screen (NotDetected) Disposition Clinical Impression: Altered mental status, Hyperventilation Disposition: HOME SELF-CARE Condition: Fair Instructions (If sedation given, give patient instructions): Altered Mental Status (ED) Is patient prescribed a controlled substance at d/c from ED?: No Referrals: Odessa Lechuga MD [Primary Care Provider] - 1-2 days Time of Disposition: 18:35
[2021-11-18 19:09] LABS: Glucose,Whole Blood 125 mg/dL (70-110)
[2021-11-18 19:14] VITALS: BP 176/73; PULSE 67; RESP 18
== END 2021-11-18 19:13 | disposition home or self-care (01) ==
LOC: EC 15:45
DX: R41.82 Altered mental status, unspecified (principal); R06.4 Hyperventilation; E11.9 Type 2 diabetes mellitus without complications; E78.5 Hyperlipidemia, unspecified; I10 Essential (primary) hypertension; Z88.1 Allergy status to other antibiotic agents; Z91.048 Other nonmedicinal substance allergy status
CPT/HCPCS: 36415; 70450; 71046; 80053; 80306; 81001; 85025; 85610; 85730; 96360; 96361; 99285

== ENCOUNTER 2022-01-12 15:58 | Emergency (ER) | payer MEDICARE ==
[2022-01-12 16:40] VITALS: TEMP 97.6
--- NOTE | 2022-01-12 17:13 | XR ---
EXAMINATION TYPE: XR chest 1V portable DATE OF EXAM: 01/12/2022 COMPARISON: 11/18/2021 HISTORY: Syncope TECHNIQUE: FINDINGS: Heart is normal. Lungs are clear of consolidation. There are no hilar masses. There is righ t axillary pacemaker. No pleural effusion. IMPRESSION: No active cardiopulmonary disease. Normal heart. No change.
[2022-01-12 17:26] LABS: Basophils % (A) 0 %; Eosinophils # (A) 0.1 k/uL (0-0.7); Eosinophils % (A) 1 %; HCT 36.8 % (34.0-46.0); HGB 12.1 gm/dL (11.4-16.0); Lymphocytes % (A) 23 %; MCHC 32.9 g/dL (31.0-37.0); MCV 97.3 fL (80.0-100.0); Mean Platelet Volume 8.6; Monocytes # (A) 0.4 k/uL (0-1.0); Monocytes % (A) 5 %; Neutrophils # (A) 6.1 k/uL (1.3-7.7); Neutrophils % (A) 70 %; Platelet Count 182 k/uL (150-450); RBC 3.79 m/uL (3.80-5.40); RDW 13.2 % (11.5-15.5); WBC 8.8 k/uL (3.8-10.6)
[2022-01-12 17:30] LABS: INR 1.3 (<1.2); Partial Thromboplastin Time 39.3 sec (22.0-30.0); Prothrombin Time 13.3 sec (9.0-12.0)
[2022-01-12 17:48] LABS: Calcium 9.9 mg/dL (8.4-10.2); Potassium 3.9 mmol/L (3.5-5.1); Total Bilirubin 0.5 mg/dL (0.2-1.3); Total Protein 6.4 g/dL (6.3-8.2)
[2022-01-12] MEDS ORDERED: INSULIN REGULAR 100 UNIT/ML VIAL (IV) SQ STA (17:53)
[2022-01-12] MEDS ORDERED: SODIUM CHLORIDE 0.9% 500 ML 500 ML IV STA (17:53)
--- NOTE | 2022-01-12 17:59 | ED ---
Syncope HPI - General Chief Complaint: Syncope Stated Complaint: fell - hit head - loc Time Seen by Provider: 01/12/22 16:50 Source: patient Mode of arrival: ambulatory Limitations: no limitations - History of Present Illness Initial Comments: This patient is a 76-year-old woman who presents to have evaluation after she passed out and fell hitting her head on the floor. The patient states that this is at least her fourth or fifth episode of passing out since May of this year. She was seen at [facility] [place], and she believes she was seen here twice previously. Today she had gotten out of bed and was walking to her kitchen to have some water to drink. She states that she felt dizzy and then she passed out falling backward and striking her head. She complains of some mild localized headache. She states that she otherwise feels well back to her usual self. She denies neck pain, back pain or any other injury. She did not have any chest pain, palpitations, dyspnea, diaphoresis or other symptoms. MD Complaint: loss of consciousness Onset/Timin -: hour(s) Prodromal Symptoms: lightheaded (Dizzy) Witnessed: no Injuries Sustained Associated with Event: Head Current Symptoms: back to baseline History: previous syncopal episode, pacemaker Context: getting out of bed Treatments Prior to Arrival: none - Related Data Home Medications Medication Instructions Recorded Confirmed ALPRAZolam [Xanax] 0.25 mg PO BID 11/13/21 11/18/21 Cholecalciferol [Vitamin D3 (25 25 mcg PO DAILY 11/13/21 11/18/21 Mcg = 1000 Iu)] Cyanocobalamin [Vitamin B-12] 1,000 mcg PO DAILY 11/13/21 11/18/21 Donepezil [Aricept] 5 mg PO HS 11/13/21 11/18/21 Ibandronate Sodium [Boniva] 150 mg PO QMONTHLY 11/13/21 11/18/21 Insulin Glargine,Hum.rec.anlog 10 units SQ HS 11/13/21 11/18/21 [Lantus Solostar Pen] Insulin Glargine,Hum.rec.anlog 30 units SQ DAILY 11/13/21 11/18/21 [Lantus Solostar Pen] Insulin Lispro [humaLOG Kwikpen] See Protocol SQ AC-TID 11/13/21 11/18/21 Rosuvastatin [Crestor] 20 mg PO DAILY 11/13/21 11/18/21 Dabigatran [Pradaxa] 150 mg PO BID 11/15/21 11/18/21 Previous Rx's Medication Instructions Recorded Mupirocin 2% Oint [Bactroban 2% 1 applic TOPICAL TID 10 Days #22 gm 11/15/21 Oint] Allergies Allergy/AdvReac Type Severity Reaction Status Date / Time adhesive Allergy Rash/Hives Verified 01/12/22 16:40 ofloxacin [From Floxin] Allergy Unknown Verified 01/12/22 16:40 Review of Systems ROS Statement: Those systems with pertinent positive or pertinent negative responses have been documented in the HPI. ROS Other: All systems not noted in ROS Statement are negative. Constitutional: Denies: fever, chills Respiratory: Denies: cough, dyspnea Cardiovascular: Reports: syncope. Denies: chest pain, palpitations, edema Gastrointestinal: Denies: abdominal pain, vomiting, diarrhea Genitourinary: Denies: dysuria, hematuria Musculoskeletal: Denies: back pain Skin: Denies: rash Neurological: Reports: headache. Denies: weakness, numbness Past Medical History Past Medical History: Atrial Fibrillation, Diabetes Mellitus, Hyperlipidemia, Hypertension History of Any Multi-Drug Resistant Organisms: None Reported Past Surgical History: Appendectomy, Cardiac Ablation, Cholecystectomy, Hysterectomy, Joint Replacement, Orthopedic Surgery, Pacemaker Additional Past Surgical History / Comment(s): lt knee replacement Past Anesthesia/Blood Transfusion Reactions: Family History of Problems w/ Anesthesia, Motion Sickness Additional Past Anesthesia/Blood Transfusion Reaction / Comment(s): pt states siblings are "allergic" to anesthesia experience hives and breathing difficulties Type of Cardiac Device: Permanent Pacemaker Device Placement Date:: 2013 Past Psychological History: Depression Smoking Status: Never smoker Past Alcohol Use History: Occasional Past Drug Use History: None Reported - Past Family History Brother(s) Family Medical History: Cancer Additional Family Medical History / Comment(s): colorectal,multiple myeloma Sister(s) Family Medical History: Cancer, CVA/TIA Additional Family Medical History / Comment(s): breast,colorectal cancer Son(s) Family Medical History: Cancer, Diabetes Mellitus (States majority of her family has diabetes) Additional Family Medical History / Comment(s): leukemia General Exam Limitations: no limitations General appearance: alert, in no apparent distress Head exam: Present: normocephalic, other (There is a proximally 3 cm hematoma posterior scalp near the occiput) Eye exam: Present: normal appearance, PERRL, EOMI. Absent: scleral icterus, conjunctival injection, nystagmus Neck exam: Present: normal inspection, full ROM. Absent: tenderness Respiratory exam: Present: normal lung sounds bilaterally. Absent: respiratory distress, wheezes, rales, rhonchi, stridor Cardiovascular Exam: Present: regular rate, normal rhythm, normal heart sounds. Absent: systolic murmur, diastolic murmur, rubs, gallop GI/Abdominal exam: Present: soft. Absent: distended, tenderness, guarding, rebound, rigid, mass Extremities exam: Present: normal inspection, normal capillary refill. Absent: pedal edema, calf tenderness Back exam: Present: normal inspection. Absent: CVA tenderness (R), CVA tenderness (L), vertebral tenderness Neurological exam: Present: alert, oriented X3, CN II-XII intact. Absent: motor sensory deficit Skin exam: Present: warm, dry, intact, normal color. Absent: rash Course Vital Signs 01/12/22 16:37 Temperature 97.6 F Pulse Rate 74 Respiratory 20 Rate Blood Pressure 95/52 O2 Sat by Pulse 99 Oximetry EKG Findings - EKG Comments: EKG Findings:: Twelve-lead ECG reveals atrial paced rhythm at 66 bpm. - EKG Results: EKG: interpreted by ROSALES, normal QRS, normal ST/T Medical Decision Making - Lab Data Result diagrams: 01/12/22 17:10 01/12/22 17:10 Lab Results 01/12/22 01/12/22 01/12/22 Range/Units 17:10 17:10 17:10 WBC 8.8 (3.8-10.6) k/uL RBC 3.79 L (3.80-5.40) m/uL Hgb 12.1 (11.4-16.0) gm/dL Hct 36.8 (34.0-46.0) % MCV 97.3 (80.0-100.0) fL MCH 32.0 (25.0-35.0) pg MCHC 32.9 (31.0-37.0) g/dL RDW 13.2 (11.5-15.5) % Plt Count 182 (150-450) k/uL MPV 8.6 Neutrophils % 70 % Lymphocytes % 23 % Monocytes % 5 % Eosinophils % 1 % Basophils % 0 % Neutrophils # 6.1 (1.3-7.7) k/uL Lymphocytes # 2.0 (1.0-4.8) k/uL Monocytes # 0.4 (0-1.0) k/uL Eosinophils # 0.1 (0-0.7) k/uL Basophils # 0.0 (0-0.2) k/uL PT 13.3 H (9.0-12.0) sec INR 1.3 H (<1.2) APTT 39.3 H (22.0-30.0) sec Sodium 136 L (137-145) mmol/L Potassium 3.9 (3.5-5.1) mmol/L Chloride 97 L (98-107) mmol/L Carbon Dioxide 30 (22-30) mmol/L Anion Gap 9 mmol/L BUN 21 H (7-17) mg/dL Creatinine 0.79 (0.52-1.04) mg/dL Est GFR (CKD-EPI)AfAm 84 (>60 ml/min/1.73 sqM) Est GFR (CKD-EPI)NonAf 73 (>60 ml/min/1.73 sqM) Glucose 282 H (74-99) mg/dL Calcium 9.9 (8.4-10.2) mg/dL Total Bilirubin 0.5 (0.2-1.3) mg/dL AST 26 (14-36) U/L ALT 17 (4-34) U/L Alkaline Phosphatase 46 (38-126) U/L Troponin I (0.000-0.034) ng/mL Total Protein 6.4 (6.3-8.2) g/dL Albumin 4.0 (3.5-5.0) g/dL 01/12/22 Range/Units 17:10 WBC (3.8-10.6) k/uL RBC (3.80-5.40) m/uL Hgb (11.4-16.0) gm/dL Hct (34.0-46.0) % MCV (80.0-100.0) fL MCH (25.0-35.0) pg MCHC (31.0-37.0) g/dL RDW (11.5-15.5) % Plt Count (150-450) k/uL MPV Neutrophils % % Lymphocytes % % Monocytes % % Eosinophils % % Basophils % % Neutrophils # (1.3-7.7) k/uL Lymphocytes # (1.0-4.8) k/uL Monocytes # (0-1.0) k/uL Eosinophils # (0-0.7) k/uL Basophils # (0-0.2) k/uL PT (9.0-12.0) sec INR (<1.2) APTT (22.0-30.0) sec Sodium (137-145) mmol/L Potassium (3.5-5.1) mmol/L Chloride (98-107) mmol/L Carbon Dioxide (22-30) mmol/L Anion Gap mmol/L BUN (7-17) mg/dL Creatinine (0.52-1.04) mg/dL Est GFR (CKD-EPI)AfAm (>60 ml/min/1.73 sqM) Est GFR (CKD-EPI)NonAf (>60 ml/min/1.73 sqM) Glucose (74-99) mg/dL Calcium (8.4-10.2) mg/dL Total Bilirubin (0.2-1.3) mg/dL AST (14-36) U/L ALT (4-34) U/L Alkaline Phosphatase (38-126) U/L Troponin I <0.012 (0.000-0.034) ng/mL Total Protein (6.3-8.2) g/dL Albumin (3.5-5.0) g/dL Disposition Clinical Impression: Syncope, Hyperglycemia due to diabetes mellitus Disposition: HOME SELF-CARE Condition: Good Instructions (If sedation given, give patient instructions): Syncope (ED) Is patient prescribed a controlled substance at d/c from ED?: No Referrals: Odessa Lechuga MD [Primary Care Provider] - 1-2 days
--- NOTE | 2022-01-12 19:14 | CT ---
EXAMINATION TYPE: CT brain wo con DATE OF EXAM: 01/12/2022 COMPARISON: 11/18/2021 HISTORY: syncope episode CT DLP: 1107.4 mGycm Automated exposure control for dose reduction was used. Images obtained of the brain without contrast. There is hypodensity in the periventricular white matter. There is no mass effect or midline shift. N o sign of intracranial hemorrhage. Calvarium is intact. There is normal aeration of the mastoid sinus es. IMPRESSION: Cerebral atrophy and chronic small vessel ischemia. No acute intracranial abnormality. No change.
[2022-01-12 19:44] VITALS: BP 117/63; PULSE 61; RESP 22
== END 2022-01-12 20:01 | disposition home or self-care (01) ==
LOC: EC 15:58
DX: R55 Syncope and collapse (principal); E11.65 Type 2 diabetes mellitus with hyperglycemia; E11.9 Type 2 diabetes mellitus without complications; E78.5 Hyperlipidemia, unspecified; I10 Essential (primary) hypertension; Z79.4 Long term (current) use of insulin; Z91.048 Other nonmedicinal substance allergy status; Z88.8 Allergy status to other drugs, medicaments and biological substances
CPT/HCPCS: 36415; 70450; 71045; 80053; 84484; 85025; 85610; 85730; 93005; 99285

== ENCOUNTER 2022-03-11 15:31 | Emergency (ER) | payer MEDICARE ==
--- NOTE | 2022-03-11 16:30 | ED ---
Altered Mental Status HPI - General Chief Complaint: Altered Mental Status Stated Complaint: High BP Time Seen by Provider: 03/11/22 16:03 Source: patient, family, RN notes reviewed Mode of arrival: wheelchair - History of Present Illness Initial Comments: Patient is a 76-year-old female presenting to the emergency room with her grandson with concerns regarding increased confusion and attempts to lay down while sitting up on a couch. Her grandson reports that typically she is active and converses with only a small amount of confusion occasionally but since attempting to go to vote earlier today she has not been at her baseline. He reports that they attempted to go to the [facility] and she became overwhelmed in the had to leave without her being able to vault. Since that event she has not been acting herself. He denies any falls or loss of consciousness. She is not opening her eyes often during conversation while answering questions slowly but appropriately. She was seen in the emergency department on January 12 of this year for evaluations for recurrent falls. At that time she had a CT of the brain that showed no acute abnormalities. She has been on donezepil for several years for dementia. She is on Xanax as needed for anxiety but did not take any today. She denies any complaints including chest pain, shortness of breath, abdominal pain, nausea, vomiting, dysuria, or incontinence. In addition to her dementia and anxiety history she has past medical history significant for osteopenia, hyperlipidemia, and diabetes; she did take her insulin this morning as prescribed. She reports eating breakfast and has a dexacom showing stable blood sugars. She has a history of atrial fibrillation with a pacemaker and is on Pradaxa. - Related Data Home Medications Medication Instructions Recorded Confirmed ALPRAZolam [Xanax] 0.25 mg PO BID 11/13/21 11/18/21 Cholecalciferol [Vitamin D3 (25 25 mcg PO DAILY 11/13/21 11/18/21 Mcg = 1000 Iu)] Cyanocobalamin [Vitamin B-12] 1,000 mcg PO DAILY 11/13/21 11/18/21 Donepezil [Aricept] 5 mg PO HS 11/13/21 11/18/21 Ibandronate Sodium [Boniva] 150 mg PO QMONTHLY 11/13/21 11/18/21 Insulin Glargine,Hum.rec.anlog 10 units SQ HS 11/13/21 11/18/21 [Lantus Solostar Pen] Insulin Glargine,Hum.rec.anlog 30 units SQ DAILY 11/13/21 11/18/21 [Lantus Solostar Pen] Insulin Lispro [humaLOG Kwikpen] See Protocol SQ AC-TID 11/13/21 11/18/21 Rosuvastatin [Crestor] 20 mg PO DAILY 11/13/21 11/18/21 Dabigatran [Pradaxa] 150 mg PO BID 11/15/21 11/18/21 Previous Rx's Medication Instructions Recorded Mupirocin 2% Oint [Bactroban 2% 1 applic TOPICAL TID 10 Days #22 gm 11/15/21 Oint] Allergies Allergy/AdvReac Type Severity Reaction Status Date / Time adhesive Allergy Rash/Hives Verified 03/11/22 15:57 ofloxacin [From Floxin] Allergy Unknown Verified 03/11/22 15:57 Review of Systems ROS Statement: Those systems with pertinent positive or pertinent negative responses have been documented in the HPI. ROS Other: All systems not noted in ROS Statement are negative. Past Medical History Past Medical History: Atrial Fibrillation, Diabetes Mellitus, Hyperlipidemia, Hypertension History of Any Multi-Drug Resistant Organisms: None Reported Past Surgical History: Appendectomy, Cardiac Ablation, Cholecystectomy, Hysterectomy, Joint Replacement, Orthopedic Surgery, Pacemaker Additional Past Surgical History / Comment(s): lt knee replacement Past Anesthesia/Blood Transfusion Reactions: Family History of Problems w/ Anesthesia, Motion Sickness Additional Past Anesthesia/Blood Transfusion Reaction / Comment(s): pt states siblings are "allergic" to anesthesia experience hives and breathing difficulties Type of Cardiac Device: Permanent Pacemaker Device Placement Date:: 2013 Past Psychological History: Depression Smoking Status: Never smoker Past Alcohol Use History: Occasional Past Drug Use History: None Reported - Past Family History Brother(s) Family Medical History: Cancer Additional Family Medical History / Comment(s): colorectal,multiple myeloma Sister(s) Family Medical History: Cancer, CVA/TIA Additional Family Medical History / Comment(s): breast,colorectal cancer Son(s) Family Medical History: Cancer, Diabetes Mellitus (States majority of her family has diabetes) Additional Family Medical History / Comment(s): leukemia General Exam General appearance: in no apparent distress (it is a every), other (Poor eye contact, obeys commands and answering questions but slowly) Head exam: Present: normocephalic, normal inspection Eye exam: Present: normal appearance, PERRL, EOMI. Absent: scleral icterus, conjunctival injection, periorbital swelling ENT exam: Present: normal exam, mucous membranes moist Neck exam: Present: normal inspection, full ROM Respiratory exam: Present: normal lung sounds bilaterally. Absent: respiratory distress, wheezes, rales, rhonchi, stridor Cardiovascular Exam: Present: regular rate, normal rhythm, normal heart sounds, systolic murmur. Absent: diastolic murmur, rubs, gallop, clicks GI/Abdominal exam: Present: soft, normal bowel sounds. Absent: distended, tenderness, guarding, rebound, rigid Rectal exam: Present: deferred Extremities exam: Present: normal inspection, pedal edema (trace bilateral L >R) Back exam: Present: normal inspection Expanded Patient oriented to: Present: person, time. Absent: place Speech: Present: fluid speech (slow but fluid) Sensory exam: Upper Extremity Light Touch: Normal, Lower Extremity Light Touch: Normal Motor strength exam: RUE: 5, LUE: 5, RLE: 5, LLE: 5 Eye Response: (3) open to voice Motor Response: (6) obeys commands Verbal Response: (4) confused conversation [place] Total: 13 Psychiatric exam: Present: flat affect Skin exam: Present: warm, dry, intact, normal color. Absent: rash Course Vital Signs 03/11/22 15:54 Temperature 98.0 F Pulse Rate 83 Respiratory 18 Rate Blood Pressure 148/91 O2 Sat by Pulse 100 Oximetry Medical Decision Making - Medical Decision Making 76-year-old female presenting to the emergency room with altered mental status after having anxiety while being taken several earlier today and was unable to complete the process. Currently answering questions appropriately though slowly and with poor eye contact. Otherwise neurological exam is normal. Alert and oriented 2 in poor historian which is baseline. We'll defer computed tomography scan is recently had computed tomography scan without acute findings without any trauma and no focal neurological deficits. Will obtain CBC, CMP, urinalysis, coags along with chest x-ray. EKG/sinus rhythm first degree AV block, CBC unremarkable. CMP with mild elevated calcium level near baseline glucose stable at 149, urinalysis negative. Chest x- ray negative for acute cardiopulmonary process. Findings discussed at length with patient and family at bedside. Discussed further workup versus taking patient home and monitoring mentation/activity in the home environment in the setting of known dementia. Family agreeable for discharge home with follow-up with primary care provider with known strict return parameters to return to the emergency room if any altered mental status, abnormal behavior or other concerns. case discussed with Dr. Prescott. - Lab Data Result diagrams: 03/11/22 16:30 03/11/22 16:30 Lab Results 03/11/22 03/11/22 03/11/22 Range/Units 16:30 16:30 16:30 WBC 8.8 (3.8-10.6) k/uL RBC 3.95 (3.80-5.40) m/uL Hgb 12.9 (11.4-16.0) gm/dL Hct 37.4 (34.0-46.0) % MCV 94.7 (80.0-100.0) fL MCH 32.8 (25.0-35.0) pg MCHC 34.6 (31.0-37.0) g/dL RDW 13.1 (11.5-15.5) % Plt Count 229 (150-450) k/uL MPV 8.6 Neutrophils % 56 % Lymphocytes % 37 % Monocytes % 4 % Eosinophils % 1 % Basophils % 1 % Neutrophils # 4.9 (1.3-7.7) k/uL Lymphocytes # 3.2 (1.0-4.8) k/uL Monocytes # 0.4 (0-1.0) k/uL Eosinophils # 0.1 (0-0.7) k/uL Basophils # 0.1 (0-0.2) k/uL PT 14.5 H (9.0-12.0) sec INR 1.4 H (<1.2) APTT 35.6 H (22.0-30.0) sec Sodium (137-145) mmol/L Potassium (3.5-5.1) mmol/L Chloride (98-107) mmol/L Carbon Dioxide (22-30) mmol/L Anion Gap mmol/L BUN (7-17) mg/dL Creatinine (0.52-1.04) mg/dL Est GFR (CKD-EPI)AfAm (>60 ml/min/1.73 sqM) Est GFR (CKD-EPI)NonAf (>60 ml/min/1.73 sqM) Glucose (74-99) mg/dL POC Glucose (mg/dL) (70-110) mg/dL POC Glu Dietary Aide ID Calcium (8.4-10.2) mg/dL Total Bilirubin (0.2-1.3) mg/dL AST (14-36) U/L ALT (4-34) U/L Alkaline Phosphatase (38-126) U/L Troponin I (0.000-0.034) ng/mL Total Protein (6.3-8.2) g/dL Albumin (3.5-5.0) g/dL Urine Color Colorless Urine Appearance Clear (Clear) Urine pH 8.0 (5.0-8.0) Ur Specific [place] 1.004 (1.001-1.035) Urine Protein Negative (Negative) Urine Glucose (UA) Negative (Negative) Urine Ketones Negative (Negative) Urine Blood Negative (Negative) Urine Nitrite Negative (Negative) Urine Bilirubin Negative (Negative) Urine Urobilinogen <2.0 (<2.0) mg/dL Ur Leukocyte Esterase Negative (Negative) 03/11/22 03/11/22 03/11/22 Range/Units 16:30 16:30 16:32 WBC (3.8-10.6) k/uL RBC (3.80-5.40) m/uL Hgb (11.4-16.0) gm/dL Hct (34.0-46.0) % MCV (80.0-100.0) fL MCH (25.0-35.0) pg MCHC (31.0-37.0) g/dL RDW (11.5-15.5) % Plt Count (150-450) k/uL MPV Neutrophils % % Lymphocytes % % Monocytes % % Eosinophils % % Basophils % % Neutrophils # (1.3-7.7) k/uL Lymphocytes # (1.0-4.8) k/uL Monocytes # (0-1.0) k/uL Eosinophils # (0-0.7) k/uL Basophils # (0-0.2) k/uL PT (9.0-12.0) sec INR (<1.2) APTT (22.0-30.0) sec Sodium 137 (137-145) mmol/L Potassium 3.9 (3.5-5.1) mmol/L Chloride 102 (98-107) mmol/L Carbon Dioxide 25 (22-30) mmol/L Anion Gap 10 mmol/L BUN 18 H (7-17) mg/dL Creatinine 0.70 (0.52-1.04) mg/dL Est GFR (CKD-EPI)AfAm >90 (>60 ml/min/1.73 sqM) Est GFR (CKD-EPI)NonAf 83 (>60 ml/min/1.73 sqM) Glucose 149 H (74-99) mg/dL POC Glucose (mg/dL) 151 H (70-110) mg/dL POC Glu Dietary Aide ID Yue Torres Calcium 10.4 H (8.4-10.2) mg/dL Total Bilirubin 1.0 (0.2-1.3) mg/dL AST 29 (14-36) U/L ALT 19 (4-34) U/L Alkaline Phosphatase 72 (38-126) U/L Troponin I <0.012 (0.000-0.034) ng/mL Total Protein 7.5 (6.3-8.2) g/dL Albumin 4.8 (3.5-5.0) g/dL Urine Color Urine Appearance (Clear) Urine pH (5.0-8.0) Ur Specific [place] (1.001-1.035) Urine Protein (Negative) Urine Glucose (UA) (Negative) Urine Ketones (Negative) Urine Blood (Negative) Urine Nitrite (Negative) Urine Bilirubin (Negative) Urine Urobilinogen (<2.0) mg/dL Ur Leukocyte Esterase (Negative) - EKG Data -: EKG Interpreted by Co EKG Comments: EKG at 1733 sinus rhythm with first-degree AV block, ventricular rate 70 bpm, SC interval 259 ms, QRS duration 94 ms, QT/QTC 425/444 ms, PRT axes 71, -49, 15 - Radiology Data Radiology results: report reviewed, image reviewed Two-view chest x-ray shows no active cardiopulmonary disease. Normal heart. Disposition Clinical Impression: Dementia, Altered mental status Disposition: HOME SELF-CARE Condition: Stable Instructions (If sedation given, give patient instructions): Altered Mental Status (ED), Dementia (ED) Additional Instructions: Please continue your home medications as prescribed. Good hydration and caloric intake encouraged. Please follow-up with your primary care provider. If any continued abnormal behavior or altered mental status please return to the emergency room immediately. Please return to the Emergency Department if sym ptoms worsen or any other concerns. Is patient prescribed a controlled substance at d/c from ED?: No Referrals: Odessa Lechuga MD [Primary Care Provider] - 1-2 days Time of Disposition: 18:20
[2022-03-11 16:35] LABS: Glucose,Whole Blood 151 mg/dL (70-110)
[2022-03-11 16:47] LABS: Basophils # (A) 0.1 k/uL (0-0.2); Basophils % (A) 1 %; Eosinophils # (A) 0.1 k/uL (0-0.7); Eosinophils % (A) 1 %; HCT 37.4 % (34.0-46.0); HGB 12.9 gm/dL (11.4-16.0); Lymphocytes # (A) 3.2 k/uL (1.0-4.8); Lymphocytes % (A) 37 %; MCH 32.8 pg (25.0-35.0); MCHC 34.6 g/dL (31.0-37.0); MCV 94.7 fL (80.0-100.0); Mean Platelet Volume 8.6; Monocytes # (A) 0.4 k/uL (0-1.0); Monocytes % (A) 4 %; Neutrophils # (A) 4.9 k/uL (1.3-7.7); Neutrophils % (A) 56 %; Platelet Count 229 k/uL (150-450); RBC 3.95 m/uL (3.80-5.40); RDW 13.1 % (11.5-15.5); WBC 8.8 k/uL (3.8-10.6)
[2022-03-11 16:48] LABS: Appearance,Urine Clear (Clear); Bilirubin,Urine Negative (Negative); Blood,Urine Negative (Negative); Color,Urine Colorless; Glucose,Urine (UA) Negative (Negative); Ketones,Urine Negative (Negative); Leukocyte Esterase,Urine Negative (Negative); Nitrite,Urine Negative (Negative); Protein,Urine Negative (Negative); Specific Gravity,Urine 1.004 (1.001-1.035); Urobilinogen,Urine <2.0 mg/dL (<2.0)
[2022-03-11 17:00] LABS: INR 1.4 (<1.2); Partial Thromboplastin Time 35.6 sec (22.0-30.0); Prothrombin Time 14.5 sec (9.0-12.0)
[2022-03-11 17:06] LABS: ALT 19 U/L (4-34); AST 29 U/L (14-36); African American GFR (CKD) >90 (>60 ml/min/1.73 sqM); Albumin 4.8 g/dL (3.5-5.0); Alkaline Phosphatase 72 U/L (38-126); Anion Gap 10 mmol/L; Blood Urea Nitrogen 18 mg/dL (7-17); Calcium 10.4 mg/dL (8.4-10.2); Carbon Dioxide 25 mmol/L (22-30); Chloride 102 mmol/L (98-107); Glucose 149 mg/dL (74-99); Non-African American GFR(CKD) 83 (>60 ml/min/1.73 sqM); Potassium 3.9 mmol/L (3.5-5.1); Sodium 137 mmol/L (137-145); Total Protein 7.5 g/dL (6.3-8.2)
--- NOTE | 2022-03-11 17:23 | XR ---
EXAMINATION TYPE: XR chest 2V DATE OF EXAM: 03/11/2022 COMPARISON: 01/12/2022 HISTORY: Altered mental status TECHNIQUE: 2 views FINDINGS: There is no heart failure or confluent pneumonic infiltrate. There is right axillary pacema ker. There are no hilar masses. No pleural effusion. Bony thorax is intact. IMPRESSION: No active cardiopulmonary disease. Normal heart. No adverse change.
[2022-03-11 19:26] VITALS: TEMP 98.2
[2022-03-11 20:09] VITALS: BP 180/62; PULSE 88; RESP 18
== END 2022-03-11 20:34 | disposition home or self-care (01) ==
LOC: EC 15:31
DX: R41.82 Altered mental status, unspecified (principal); F41.9 Anxiety disorder, unspecified; F03.90 Unspecified dementia, unspecified severity, without behavioral disturbance, psychotic disturbance, mood disturbance, and anxiety; E83.52 Hypercalcemia; F32.A Depression, unspecified; E11.9 Type 2 diabetes mellitus without complications; E78.5 Hyperlipidemia, unspecified; I10 Essential (primary) hypertension; Z88.1 Allergy status to other antibiotic agents; Z91.048 Other nonmedicinal substance allergy status; Z79.02 Long term (current) use of antithrombotics/antiplatelets; Z79.4 Long term (current) use of insulin; Z95.0 Presence of cardiac pacemaker
CPT/HCPCS: 36415; 71046; 80053; 81003; 84484; 85025; 85610; 85730; 93005; 99285

== ENCOUNTER → 2022-06-18 | Outpatient (CLI) | payer MEDICARE ==
[2022-06-18 18:20] LABS: Basophils # (A) 0.05 X 10*3/uL (0.00-0.10); Basophils % (A) 0.8 %; Eosinophils # (A) 0.13 X 10*3/uL (0.04-0.35); HCT 35.6 % (37.2-46.3); HGB 11.5 g/dL (12.0-15.0); Immature Grans, Automated 0.3 %; Lymphocytes # (A) 2.47 X 10*3/uL (0.90-5.00); Lymphocytes % (A) 37.9 %; MCH 31.2 pg (27.0-32.0); MCHC 32.3 g/dL (32.0-37.0); MCV 96.5 fL (80.0-97.0); Mean Platelet Volume 10.8 fL (9.5-12.2); Monocytes # (A) 0.52 X 10*3/uL (0.20-1.00); NRBC Per 100 WBC 0 /100 WBCS (0.0-0.0); Neutrophils # (A) 3.33 X 10*3/uL (1.80-7.70); Platelet Count 184 X 10*3/uL (140-440); RBC 3.69 X 10*6/uL (4.10-5.20); RDW 13.1 % (11.5-14.5); WBC 6.52 X 10*3/uL (4.50-10.00)
[2022-06-18 18:51] LABS: ALT 18 U/L (8-44); AST 25 U/L (13-35); African American GFR (CKD) 95.5 (60.0-200.0); Albumin 4.4 g/dL (3.8-4.9); Albumin/Globulin Ratio 1.83 (1.60-3.17); Alkaline Phosphatase 56 U/L (41-126); Blood Urea Nitrogen 16.1 mg/dL (9.0-27.0); Calcium 10.3 mg/dL (8.7-10.3); Carbon Dioxide 27.4 mmol/L (20.0-27.5); Chloride 105 mmol/L (96-109); Chol/HDL Ratio 2.43 Ratio; Globulin 2.4 g/dL (1.6-3.3); Glucose 161 mg/dL (70-110); LDL Cholesterol,Calculated 76.7 mg/dL (0.0-131.0); Non-African American GFR(CKD) 82.4 (60.0-200.0); Potassium 4.5 mmol/L (3.5-5.5); Sodium 142 mmol/L (135-145); Total Protein 6.8 g/dL (6.2-8.2); VLDL Calculation 12.66 mg/dL (5.00-40.00)
[2022-06-18 22:32] LABS: Microalbumin Creatinine Ratio <30 mg/g Creat (0-30); Urine Creatinine 36.1 mg/dL (28.0-217.0)
== END | disposition home or self-care (01) ==
LOC: LABWHC1 10:37
PROVIDERS: ATTEND Internal Medicine
DX: E11.36 Type 2 diabetes mellitus with diabetic cataract (principal); I10 Essential (primary) hypertension; E78.00 Pure hypercholesterolemia, unspecified; F41.1 Generalized anxiety disorder; E03.9 Hypothyroidism, unspecified; Z53.9 Procedure and treatment not carried out, unspecified reason
CPT/HCPCS: 36415; 80053; 80061; 82043; 82570; 83036; 84439; 84443; 85025

== ENCOUNTER → 2022-10-14 | Outpatient (CLI) | payer MEDICARE ==
--- NOTE | 2022-10-15 21:06 | XR ---
EXAMINATION TYPE: XR foot complete LT DATE OF EXAM: 10/14/2022 4:36 PM INDICATION: Patient age:Female; 77 years old; Reason for study: [id number] LT TOE PAIN;. COMPARISON: None TECHNIQUE: The left foot was examined in the AP, oblique, and lateral projections. FINDINGS: No evidence of any acute osseous pathology. No evidence of soft tissue swelling. Joints are preserve d. Calcaneal plantar spurring is present. Achilles tendon calcaneal enthesophyte. Multifocal degenera tion changes with joint space narrowing and osteophyte formation. IMPRESSION: 1. No evidence of acute fracture. 2. Mild scattered multifocal osteophytosis.
== END | disposition home or self-care (01) ==
LOC: RADXRYALE 16:26
PROVIDERS: ATTEND Internal Medicine
DX: M25.775 Osteophyte, left foot (principal)

== ENCOUNTER → 2023-06-19 | Day surgery (SDC) | payer MEDICARE ==
[2023-06-19] MEDS: SODIUM CHLORIDE 0.9% 1,000 ML IV SCH (09:40)
[2023-06-19 09:42] LABS: Glucose,Whole Blood 186 mg/dL (70-110)
[2023-06-19 09:54] VITALS: RESP 16; TEMP 97.6
[2023-06-19 10:06] LABS: Basophils # (A) 0.1 k/uL (0-0.2); Basophils % (A) 1 %; Eosinophils # (A) 0.2 k/uL (0-0.7); Eosinophils % (A) 2 %; HGB 12.9 gm/dL (11.4-16.0); Lymphocytes # (A) 2.1 k/uL (1.0-4.8); Lymphocytes % (A) 29 %; MCH 31.8 pg (25.0-35.0); MCHC 32.3 g/dL (31.0-37.0); MCV 98.3 fL (80.0-100.0); Mean Platelet Volume 8.9; Monocytes # (A) 0.3 k/uL (0-1.0); Monocytes % (A) 4 %; Neutrophils # (A) 4.5 k/uL (1.3-7.7); Neutrophils % (A) 62 %; Platelet Count 185 k/uL (150-450); RBC 4.06 m/uL (3.80-5.40); RDW 13.9 % (11.5-15.5); WBC 7.2 k/uL (3.8-10.6)
[2023-06-19 10:22] LABS: African American GFR (CKD) >90 (>60 ml/min/1.73 sqM); Anion Gap 4 mmol/L; Blood Urea Nitrogen 11 mg/dL (7-17); Calcium 10.3 mg/dL (8.4-10.2); Carbon Dioxide 29 mmol/L (22-30); Chloride 107 mmol/L (98-107); Glucose 180 mg/dL (74-99); Non-African American GFR(CKD) 87 (>60 ml/min/1.73 sqM); Potassium 4.4 mmol/L (3.5-5.1); Sodium 140 mmol/L (137-145)
[2023-06-19] MEDS: MIDAZOLAM 2 MG/2 ML VIAL IVP ONE (12:27)
[2023-06-19] MEDS: fentaNYL (PF) 50 MCG/ML 2 ML AMP IVP ONE ×2 (12:27)
[2023-06-19] MEDS: LIDOCAINE 1% INJ 10MG/ML (20 ML MDV) SQ ONE (12:29)
[2023-06-19] MEDS: ceFAZolin 1 GM in SODIUM CHLORIDE 0.9% IRRIG BTL 250 ML IRRIGATION PRN (12:34)
[2023-06-19 19:22] VITALS: BP 156/71; PULSE 66
--- NOTE | 2023-06-19 20:44 | P.OP ---
Description of Procedure: CARDIOLOGY PROCEDURE NOTE Floor Installation Mechanic: Dr. Man Man Procedure performed: Dual chamber permanent pacemaker generator change Site: Left subclavian Indications: Sick Sinus Syndrome Complications: None Blood Loss: Minimal Description of Procedure: After the risks, benefits, and alternatives of the above-mentioned procedure was explained in detail with the patient, informed consent was obtained. The patient was taken to the cardiac catheterization suite where the left subclavian area was sterily prepped and draped in the usual fashion. Patient was given IV Versed and fentanyl for sedation. The skin over the existing pulse generator was infiltrated with lidocaine. An incision was made in the skin and was deepe yohana until the pectoral fascia was exposed. Hemostasis was obtained. The existing pulse generator was pulled out of the pocket. The leads were disconnected and were checked for thresholds. The existing leads were then inserted into the appropriate position into the new generator. They were then secured with the setscrew provided. The leads and generator were inserted into the pocket with the leads posterior. The subcutaneous tissue was approximated utilizing #2.0 and 3.0 vicryl in an interrupted stitch fashion. The dermal layer was approximated utilizing #4.0 vicryl. The area was cleansed with sterile saline and dried. A sterile 4x4 dressing was applied and the patient was transferred to the post catheterization holding area in stable and satisfactory condition. The patient tolerated the procedure well. Generator Data Cytologist: [employer] Brand: [id number] Noelle XT DR MRI Model #: [id number] Serial#: [id number] Right Atrial Bipolar Lead Data: Type: Active fixation lead Cytologist: [employer] Model#: 4592-45 Serial Number: [id number] Right Ventricular Bipolar Lead Data: Type: Active fixation lead Cytologist: [employer] Model #: 5092-52 Serial #: [id number] Stimulation Thresholds: Right atrial bipolar lead pacing and sensing thresholds Voltage: 1.0 Impedance: 437 ohms P-wave sensin.9 mV Right Ventricular bipolar lead pacing and sensing thresholds Pulse Width: 0.4ms Voltage:1.5 volts Impedance: 760 ohms R-wave sensin.5 mV Parameter Setting: Pacing mode is AAIR<=>DDDR Lower rate 60 bpm Upper rate 130 bpm Impressions: 1. Successful generator change of a dual chamber permanent pacemaker in the left pectoral site. Plan: 1. Routine post procedure care will be instituted as well as outpatient follow- up surveillance.
== END ==
LOC: CATHEP 09:18
PROVIDERS: ATTEND Internal Medicine
DX: I49.5 Sick sinus syndrome (principal); I10 Essential (primary) hypertension; E11.9 Type 2 diabetes mellitus without complications; I48.0 Paroxysmal atrial fibrillation; I95.1 Orthostatic hypotension; Z82.49 Family history of ischemic heart disease and other diseases of the circulatory system
CPT/HCPCS: 33228; 80048; 85025; C1785; J2250; J0690; J2001; J3010

== ENCOUNTER 2023-08-28 06:42 | Day surgery (SDC) | payer MEDICARE ==
[~2023-08-28 06:42] MED LIST changes: -LACTATED RINGERS 1,000 ML IV SCH; +LIDOCAINE 1% (10MG/ML) FOR IV START INTRADERMA PRN
[2023-08-28 07:34] LABS: Glucose,Whole Blood 131 mg/dL (70-110)
[2023-08-28] MEDS: LACTATED RINGERS 1,000 ML IV SCH (07:37)
[2023-08-28] MEDS ORDERED: LIDOCAINE 1% INJ 10MG/ML (20 ML MDV) ONE (07:49)
[2023-08-28] MEDS ORDERED: PROPOFOL 10 MG/ML 20 ML VIAL IV ONE (07:49)
[2023-08-28 08:07] VITALS: RESP 16; TEMP 97
--- NOTE | 2023-08-28 08:09 | P.PCN ---
Date of Procedure: 08/28/23 Procedure(s) Performed: Brief history: Patient is a pleasant 78-year-old white femalescheduled for an elective upper endoscopy as well as colonoscopy as a part of evaluation of Intermittent dysphagia to solids for the last 2 months duration and screening for colon cancer. Her sister and father both were diagnosed with colon cancer in his 60s. Procedure performed: Esophagogastroduodenoscopy with biopsy and dilation Colonoscopy Preoperative diagnosis: Intermittent dysphagia to solids Screening for colon cancer and family history of colon cancer Anesthesia: MAC Procedure: After informed consent was obtained from the patient was brought into the endoscopy unit and IV sedation was administered by anesthesia under continuous monitoring. Initially upper endoscopy was done. The Olympus GF 160 video endoscope was inserted inserted into the mouth and esophagus intubated without any difficulty and was gradually advanced into the stomach and duodenum and carefully examined. The bulb and second part of the duodenum appeared normal. The scope was then withdrawn into the stomach adequately insufflated with air and upon careful examination the antrum and body, cardia and fundus appeared normal. The scope was then withdrawn into the esophagus. Small hiatal hernia noted. The GE junction was located at 40 cm to the incisors. It appeared regular with no erythema erosions or ulcerations. There was a widely patent distal esophagus has history notable this was dilated using 18-20 mm TTS balloon in a sequential fashion for 60 seconds. Rest of the esophagus appeared normal. Biopsies were done from the distal esophagus. Patient tolerated the procedure well. At this time the patient continued to remain sedation. Initial digital rectal examination was normal. Olympus CF 160 video colonoscope was then inserted into the rectum and gradually advanced to the cecum without any difficulty. Careful examination was performed as the scope was gradually being withdrawn. The prep was excellent. The cecum, ascending colon, transverse colon, descending colon, sigmoid colon and rectum appeared normal.scattered sigmoid diverticulosis. Retroflexion was performed in the rectum and no lesions were noted. Patient tolerated the procedure well. Impression: 1. Upper endoscopy revealed distal esophageal Schatzki's ring status post balloon dilation using 18-20 mm TTS balloon and small hiatal hernia 2. Colonoscopy revealed scattered sigmoid diverticulosis but no runs of colorectal neoplasia Recommendations: Findings of this examination were discussed with the patient as well as A family. She was advised to follow with the biopsy results. Recommend a clear liquid diet for 2 hours.continue the high-fiber diet and fiber supplements a regular basis.
[2023-08-28 08:47] LABS: Glucose,Whole Blood 122 mg/dL (70-110)
[2023-08-28 08:52] VITALS: BP 123/67; PULSE 62
== END 2023-08-28 08:47 ==
LOC: ORWHC2ENDO 06:42
PROVIDERS: ATTEND Internal Medicine Gastroenterology
DX: Z12.11 Encounter for screening for malignant neoplasm of colon (principal); K22.2 Esophageal obstruction; K57.30 Diverticulosis of large intestine without perforation or abscess without bleeding; K44.9 Diaphragmatic hernia without obstruction or gangrene; I48.91 Unspecified atrial fibrillation; I10 Essential (primary) hypertension; E78.5 Hyperlipidemia, unspecified; E11.9 Type 2 diabetes mellitus without complications; E07.9 Disorder of thyroid, unspecified; F03.90 Unspecified dementia, unspecified severity, without behavioral disturbance, psychotic disturbance, mood disturbance, and anxiety; F41.9 Anxiety disorder, unspecified; F32.A Depression, unspecified; Z80.0 Family history of malignant neoplasm of digestive organs; Z79.84 Long term (current) use of oral hypoglycemic drugs; Z79.890 Hormone replacement therapy; Z79.899 Other long term (current) drug therapy; Z88.8 Allergy status to other drugs, medicaments and biological substances
CPT/HCPCS: 88305; 43239; 43249; J2001; J2704; C1726; G0105; 45378

== ENCOUNTER → 2024-10-13 | Outpatient (CLI) | payer MEDICARE ==
--- NOTE | 2024-10-13 09:05 | US ---
EXAMINATION TYPE: US abdomen complete DATE OF EXAM: 10/13/2024 COMPARISON: NONE CLINICAL INDICATION: Female, 79 years old with history of R10.9 ABD PAIN x few months; Hx dm TECHNIQUE: Grayscale and color Doppler imaging of the abdomen was performed. FINDINGS: EXAM MEASUREMENTS: Liver Length: 11.2 cm Gallbladder Wall: Surgically absent cm CBD: 0.8 cm, color Doppler imaging was utilized to isolate the common bile duct for measurement. Spleen: 9.4 cm Right Kidney: 10.3 x 5.3 x 6.5 cm Left Kidney: 10.9 x 5.5 x 4.7 cm Pancreas: wnl Liver: wnl, no dilated ducts, masses; subcentimeter cyst noted superior left lobe Gallbladder: Surgically absent Evidence for sonographic Klein's sign: Yes CBD: Dilated Spleen: wnl Right Kidney: wnl, No hydronephrosis, calculi or masses seen Left Kidney: wnl, No hydronephrosis, calculi or masses seen Upper IVC: wnl Abd Aorta: wnl The liver is homogenous. The intrahepatic portion of the IVC and proximal abdominal aorta are within normal limits. Common bile duct is unremarkable. The visualized portions of the pancreas are homog enous. The spleen is unremarkable. Kidneys are symmetric and free of hydronephrosis. No renal lesi ons are seen. IMPRESSION: 1. No evidence for acute process. 2. Probable left hepatic lobes cyst.. [facility], , 10/13/2024 9:03 AM
== END | disposition home or self-care (01) ==
LOC: RADUSWWP 08:23
PROVIDERS: ATTEND Internal Medicine
DX: R10.9 Unspecified abdominal pain (principal); E11.9 Type 2 diabetes mellitus without complications
CPT/HCPCS: 76700

== ENCOUNTER → 2024-10-27 | Outpatient (CLI) | payer MEDICARE ==
[2024-10-27 15:25] LABS: African American GFR (CKD) 84 (>60 ml/min/1.73 sqM); Blood Urea Nitrogen 15 mg/dL (7-17); Non-African American GFR(CKD) 73 (>60 ml/min/1.73 sqM)
--- NOTE | 2024-10-27 18:24 | CT ---
EXAMINATION TYPE: CT abdomen wo/w con CT DLP: 665.4 mGycm, Automated exposure control for dose reduction was used. DATE OF EXAM: 10/27/2024 5:24 PM COMPARISON: On ultrasound 10/13/2024, CT abdomen and pelvis 05/08/2019 CLINICAL INDICATION:Female, 79 years old with history of R10.9 UNSPECIFIED ABDOMINAL PAIN; Generalize d abdominal pain TECHNIQUE: Standard CT of the abdomen before and after the uneventful administration 100 cc of Isov [id number] intravenously. Oral contrast was administered . Delayed imaging of the abdomen and pelvis was obtained. Coronal and sagittal reformats were performed. FINDINGS: LOWER CHEST: The visualized lung bases are clear. Borderline enlarged heart. Partial visualization of cardiac pacemaker leads within the right ventricle and right atrium. ABDOMEN LIVER: Subcentimeter anterior left hepatic lobe hypodense lesion likely representing a cyst. GALLBLADDER AND BILE DUCTS: The gallbladder is surgically absent. No biliary ductal dilatation. PANCREAS: Unremarkable. SPLEEN: Unremarkable. ADRENAL GLANDS: Unremarkable. KIDNEYS AND URETERS: No evidence of hydronephrosis or renal calculus. The kidneys enhance symmetrical ly. Contrast is demonstrated within both collecting systems and proximal ureters on the delayed phase . STOMACH AND BOWEL: Stomach and duodenum are unremarkable. Enteric contrast reaches the distal small b owel. No focal bowel wall thickening or surrounding inflammatory changes. The appendix is not visuali zed. Sigmoid diverticulosis without evidence for acute diverticulitis. No evidence of bowel obstructi on. PERITONEUM: No evidence of pneumoperitoneum or free fluid. VASCULATURE: Mild atherosclerotic calcifications are present throughout the abdominal aorta and its b ranches. No evidence of aortic aneurysm. Few pelvic phleboliths. MUSCULOSKELETAL: No acute osseous abnormalities. Grade 1 anterolisthesis of L4 on L5 without evidence of pars defects. 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 Small left posterior iliac bone intraosseous cyst. LYMPH NODES: No evidence for lymphadenopathy. SOFT TISSUE/ABDOMINAL WALL: Unremarkable URINARY BLADDER: Unremarkable appearance of the delayed phase. REPRODUCTIVE: Uterus is surgical absent. IMPRESSION: 1. No CT evidence for acute process. 2. Sigmoid diverticulosis without evidence for acute diverticulitis. [facility], , 10/27/2024 6:22 PM
== END | disposition home or self-care (01) ==
LOC: RADCTMAIN 14:39
PROVIDERS: ATTEND Internal Medicine
DX: K57.30 Diverticulosis of large intestine without perforation or abscess without bleeding (principal)
CPT/HCPCS: 82565; 84520; 74170; 36415; Q9967